=== PATIENT | male | born 1935 | race Caucasian/White ===

== ENCOUNTER 2017-07-13 14:13 | Emergency (ER) | END 2017-07-13 17:14 | disposition home or self-care (01) ==

== ENCOUNTER 2017-09-15 12:59 | Emergency (ER) | END 2017-09-15 14:10 | disposition home or self-care (01) ==

== ENCOUNTER 2018-06-29 13:15 | Inpatient (IN) | payer MEDICARE, OTHER ==
[~2018-06-29] VITALS: Ht 175.3 cm; Wt 90.5 kg
[~2018-06-29 13:15] MED LIST: ACET-2158 PO; ACET500C5 PO; ATOR40TA68 PO; BENA40TA56 PO; DOCU-144 PO; DOXA8TAB65 PO; IBUP-1542 PO; LIDO700A29 TP; MTF1000T PO; ONDA4TAB35 PO; SENN-120 PO; SITA100T11 PO; SPIR25TA PO
[2018-06-29] MEDS ORDERED: ALBUTEROL 0.083% (NEB) 2.5 MG/3 ML AMP INH STA (17:40)
--- NOTE | 2018-06-29 17:53 | ERD ---
ER Documentation Chief Complaint Chief Complaint generalized weakness x 2 weeks HPI 83-year-old male history of diabetes, hypertension, hyperlipidemia, cardiomyopathy with ejection fraction of 45% on 09/13/2015 and right inguinal her carlee ambulatory to the ED complaining of a approximate 1 week history of generalized weakness, shortness of breath, exertional dyspnea, PND, nonproductive cough and subjective fevers. No other relieving or exacerbating factors. Denies chest pain, palpitations, abdominal pain, nausea or vomiting. No leg pain or swelling. Denies dysuria, polyuria or hematuria. No anorexia, night sweats or recent weight loss. ROS All systems reviewed and are negative except as per history of present illness. Medications Home Meds Active Scripts Lidocaine (Lidoderm) 1 Each Adh..patch, 1 EACH TP DAILY for 7 Days Prov:ERIK CAPUTO PA-C 09/15/17 Ibuprofen* (Motrin*) 600 Mg Tab, 600 MG PO Q6H PRN for PAIN AND OR ELEVATED TEMP, #30 TAB Prov:ERIK CAPUTO PA-C 09/15/17 Docusate Sodium* (Colace*) 100 Mg Capsule, 100 MG PO BID, #30 CAP Prov:SANJUANA CARTAGENA MD 07/13/17 Acetaminophen* (Tylophen*) 500 Mg Capsule, 1 CAP PO Q6H PRN for PAIN AND OR ELEVATED TEMP, #20 CAP Prov:SANJUANA CARTAGENA MD 07/13/17 Sennosides* (Senna Lax*) 8.6 Mg Tablet, 1 TAB PO BID PRN for CONSTIPATION, #14 TAB Prov:KALYANI MIX DO 04/04/16 Spironolactone* (Aldactone*) 25 Mg Tab, 25 MG PO DAILY for 30 Days, TAB Prov:SRAVANTHI GUADALUPE 09/20/15 Ondansetron Hcl* (Zofran* ODT) 4 mg -ODT Tab.disper, 4 MG PO Q6 PRN for NAUSEA AND/OR VOMITING, #10 TAB Prov:GREGG ZAMORA NP 09/07/15 Reported Medications Doxazosin Mesylate* (Doxazosin Mesylate*) 8 Mg Tablet, 8 MG PO HS, TAB 09/10/15 Sitagliptin* (Januvia*) 100 Mg Tablet, 100 MG PO DAILY, #30 TAB 09/10/15 Metformin* (Glucophage*) 1,000 Mg Tablet, 1000 MG PO BID, #60 TAB 09/10/15 Atorvastatin* (Atorvastatin*) 40 Mg Tablet, 40 MG PO QHS, #30 TAB 09/10/15 Benazepril Hcl* (Benazepril Hcl*) 40 Mg Tablet, 40 MG PO DAILY, TAB 06/20/14 Discontinued Scripts Acetaminophen (TYLENOL 325 MG TAB) 325 Mg Tab, 650 MG PO Q6H PRN for PAIN LEVEL 1-3 OR FEVER, #1 TAB Prov:ANGEL DEUTSCH MD 06/24/14 Allergies Allergies: Coded Allergies: No Known Drug Allergies (Verified Allergy, Mild, 06/29/18) PMhx/Soc Reviewed in chart. As per HPI. History of Surgery: No Anesthesia Reaction: No Hx Neurological Disorder: No Hx Respiratory Disorders: No Hx Cardiac Disorders: No Hx Psychiatric Problems: No Hx Miscellaneous Medical Probl: Yes (HTN, HYPERLIPIDEMIA) Hx Alcohol Use: Yes (SOCIALLY) Hx Substance Use: No Hx Tobacco Use: Yes Smoking Status: Current every day smoker FmHx No sudden cardiac or cancer Physical Exam Vitals Vital Signs Date Temp Pulse Resp B/P (MAP) Pulse Ox O2 O2 Flow FiO2 Time Delivery Rate 06/29/18 58 20 96 21 17:56 06/29/18 98.3 61 16 117/73 98 Room Air 17:43 (88) 06/29/18 99.6 86 18 113/60 95 13:21 (77) Physical Exam Const: Alert, moderate respiratory distress Head: Atraumatic Eyes: Normal Conjunctiva ENT: Normal External Ears, Nose and Mouth. Neck: Full range of motion. JVD. No meningismus. Resp: Breath sounds diminished bilaterally with mild expiratory wheezing and rales/rhonchi chcf up both lung thorpe. Cardio: Regular rate and rhythm, no murmurs Abd: Soft, non tender, non distended. No rebound or guarding. Normal bowel sounds Skin: No petechiae or rashes Back: No midline or flank tenderness Ext: No cyanosis. 1+ pretibial pitting edema Neur: Awake and alert. No focal deficit observed. Psych: Normal Mood and Affect Result Diagram: 07/01/18 0552 07/01/18 0552 Results 24 hrs Laboratory Tests Test 06/29/18 17:54 06/29/18 18:01 White Blood Count 7.3 10^3/ul Red Blood Count 3.84 10^6/ul Hemoglobin 11.3 g/dl Hematocrit 33.8 % Mean Corpuscular Volume 88.0 fl Mean Corpuscular Hemoglobin 29.4 pg Mean Corpuscular Hemoglobin Concent 33.4 g/dl Red Cell Distribution Width 12.8 % Platelet Count 175 10^3/UL Mean Platelet Volume 10.9 fl Immature Granulocytes % 0.400 % Neutrophils % 68.1 % Lymphocytes % 16.2 % Monocytes % 13.5 % Eosinophils % 1.1 % Basophils % 0.7 % Nucleated Red Blood Cells % 0.0 /100WBC Immature Granulocytes # 0.030 10^3/ul Neutrophils # 5.0 10^3/ul Lymphocytes # 1.2 10^3/ul Monocytes # 1.0 10^3/ul Eosinophils # 0.1 10^3/ul Basophils # 0.1 10^3/ul Nucleated Red Blood Cells # 0.0 10^3/ul Prothrombin Time 19.8 Sec Prothrombin Time Ratio 1.5 INR International Normalized Ratio 1.67 Activated Partial Thromboplast Time 47.9 Sec Sodium Level 135 mmol/L Potassium Level 4.5 mmol/L Chloride Level 95 mmol/L Carbon Dioxide Level 29 mmol/L Anion Gap 11 Blood Urea Nitrogen 31 mg/dl Creatinine 0.94 mg/dl Est Glomerular Filtrat Rate mL/min mL/min Glucose Level 338 mg/dl Calcium Level 9.1 mg/dl Total Bilirubin 0.4 mg/dl Direct Bilirubin 0.00 mg/dl Indirect Bilirubin 0.4 mg/dl Aspartate Amino Transf (AST/SGOT) 36 IU/L Alanine Aminotransferase (ALT/SGPT) 31 IU/L Alkaline Phosphatase 137 IU/L Troponin I 2.960 ng/ml B-Type Natriuretic Peptide 8390 PG/ML Total Protein 6.8 g/dl Albumin 3.8 g/dl Globulin 3.00 g/dl Albumin/Globulin Ratio 1.26 Bedside Glucose 310 mg/dL Current Medications Medications Dose Sig/[place] Start Time Status Last (Trade) Ordered Route PRN Stop Time Admin Dose Reason Admin Albuterol 5 mg ONCE STAT 06/29/18 DC 06/29/18 (Proventil INH 17:40 17:54 0.083% (Neb)) 06/29/18 17:45 Furosemide 20 mg ONCE ONCE 06/29/18 DC 06/29/18 (Lasix) IV 18:30 18:17 06/29/18 18:31 Aspirin 325 mg ONCE ONCE 06/29/18 DC 06/29/18 (Aspirin) PO 18:30 18:17 06/29/18 18:31 Heparin 4,000 unit ONCE STAT 06/29/18 DC Sodium IV 18:54 (Porcine) 06/29/18 18:58 (Heparin (1000 Units/ml)) Heparin 250 ml @ 0 ONCE STAT 06/29/18 DC 06/29/18 Sodium mls/hr IV 18:54 19:14 (Porcine) 06/29/18 18:58 Procedures/MDM DOCUMENTS REVIEWED: ED nurse, prior records EKG: Time: 18:33. Sinus rhythm. ND interval 220 ms consistent with first- degree AV block. Normal QRS duration. T wave inversions in lead II, III and aVF. Q waves V1 through V4. Left ventricular hypertrophy. No acute ST elevation. No ectopy. My Interpretation IMAGING: Chest AP portable: Cardiomegaly with bilateral interstitial infiltrates consis tent with congestive heart failure and pulmonary edema. No mediastinal widening. No abnormalities of the bony thorax. My interpretation [employer]-year-old male history of diabetes, hypertension, hyperlipidemia, cardiomyopathy with ejection fraction of 45% on 09/13/2015 and right inguinal hernia ambulatory to the ED complaining of a approximate 1 week history of generalized weakness, shortness of breath, exertional dyspnea, PND, nonproductive cough and subjective fevers. CBC reveals borderline anemia but no leukocytosis. Chemistry significant for hyperglycemia and elevated BUN but no acidosis or anion gap. EKG findings as above without acute ST segment elevation or dysrhythmia. Troponin significantly elevated at 2.96 consistent with non-ST elevation acute coronary syndrome. Chest x-ray consistent with congestive heart failure. Patient presents with acute on chronic congestive heart failure and non-ST elevation acute coronary syndrome. Aspirin given. Diuresis initiated with furosemide. Preload reduction with nitroglycerin deferred as blood pressure is slightly low. Heparin bolus and drip as per ACS protocol. Admit to telemetry for cardiology consultation, further evaluation and management. CALLS/CONSULTS: Time: 18:45, Dr. Herman. CALLS/CONSULTS: Time: 18:45, Dr. Lawson. PATIENT CARE TRANSITIONED: Time: 19:00, Dr. Lawson. CRITICAL CARE TIME: Due to the high probability of sudden clinically significant respiratory, hemodynamic and cardiovascular deterioration, this patient with acute on chronic congestive heart failure and non-ST elevation acute coronary syndrome required multiple, frequent reevaluations of vital signs and response to therapy. Additional critical care time was spent in extensive review of prior medical records, interpretation of relevant clinical data, consultation with cardiology as well as arranging for ongoing care and admission with Dr. Lawson. TOTAL CRITICAL CARE TIME: 35 minutes not including other separately reportable procedures. Counseled patient regarding diagnosis, diagnostic results and plan for admission. Patient was reluctant to be admitted but eventually consented. Departure Diagnosis: Primary Impression: Shortness of breath Additional Impressions: Acute congestive heart failure Heart failure type: unspecified Qualified Codes: I50.9 - Heart failure, unspecified Acute non-ST elevation myocardial infarction (NSTEMI) Condition: Serious CHANELL WALTON MD Jun 29, 2018 17:53
[2018-06-29] MEDS ORDERED: ASPIRIN 325 MG TAB PO ONE (18:30)
[2018-06-29] MEDS ORDERED: FUROSEMIDE 20 MG INJ IV ONE (18:30)
[2018-06-29] MEDS ORDERED: HEPARIN 25000 UNITS/250 ML 250 ML IV STA (18:54)
[2018-06-29] MEDS ORDERED: HEPARIN 1000 UNITS/ML 10 ML INJ IV STA (18:54)
[2018-06-29] MEDS ORDERED: ONDANSETRON 4 MG INJ IV PRN ×2 (19:30→22:30)
[2018-06-29] MEDS ORDERED: ACETAMINOPHEN 325 MG TAB PO PRN (19:30)
[2018-06-29 20:00] VITALS: BP 119/65; PULSE 70; RESP 20
[2018-06-29 20:46] VITALS: PULSE 59
[2018-06-29 21:00] VITALS: Ht 175.3 cm; Wt 90.5 kg
[2018-06-29] MEDS ORDERED: LIDOCAINE 5% PATCH TD PRN (22:00)
[2018-06-29] MEDS ORDERED: ACETAMINOPHEN 500 MG TAB PO PRN (22:00)
[2018-06-29] MEDS ORDERED: IBUPROFEN 600 MG TAB PO PRN (22:00)
[2018-06-29] MEDS ORDERED: HEPARIN 1000 UNITS/ML 10 ML INJ IV PRN (22:30)
[2018-06-29] MEDS ORDERED: NITROGLYCERIN (SL) 0.4 MG TAB SL PRN (22:30)
[2018-06-29] MEDS ORDERED: DEXTROSE 50% 50 ML SYRINGE IV PRN ×2 (23:00)
[2018-06-29] MEDS ORDERED: GLUCOSE GEL 15 GRAM TUBE PO PRN ×2 (23:00)
[2018-06-29] MEDS ORDERED: GLUCOSE GEL 15 GRAM TUBE BUCCAL PRN (23:00)
[2018-06-29] MEDS ORDERED: GLUCAGON 1 MG INJ IM PRN (23:00)
[2018-06-29] MEDS: CEFTRIAXONE 1 GM/50 ML (PMX) 50 ML IVPB SCH (23:52)
[2018-06-30] VITALS (9 sets, daily range): BP systolic 102–148; BP diastolic 58–80; PULSE 58–91; RESP 19–21
[2018-06-30] MEDS: INSULIN GLARGINE [LANTus] (100 UNITS/ML) SYG SC SCH ×2 (00:01→20:56)
[2018-06-30] MEDS: INSULIN ASPART [NOVOLOG] 3 ML PEN SC SCH ×5 (00:01→20:54)
[2018-06-30] MEDS: ALBUTEROL/IPRATROPIUM (NEB) 3 ML AMP HHN SCH ×4 (01:02→20:58)
[2018-06-30] MEDS: HEPARIN 25000 UNITS/250 ML 250 ML IV SCH ×3 (01:27→17:10)
[2018-06-30] MEDS: ACCU-CHEK XX SCH (02:36)
[2018-06-30] MEDS: PANTOPRAZOLE (EC) 40 MG TAB PO SCH (05:53)
[2018-06-30] MEDS ORDERED: FUROSEMIDE 20 MG INJ IV SCH (06:00)
[2018-06-30] MEDS ORDERED: ACCU-CHEK XX SCH ×2 (07:00)
[2018-06-30] MEDS ORDERED: metFORMIN 500 MG TAB PO SCH (08:00)
[2018-06-30] MEDS: BENAZEPRIL 40 MG TAB PO SCH (08:33)
[2018-06-30] MEDS: SPIRONOLACTONE 25 MG TAB PO SCH (08:33)
[2018-06-30] MEDS: METHYLPREDNISOLONE 40 MG INJ IV SCH ×2 (08:33→20:56)
[2018-06-30] MEDS: DOCUSATE SODIUM 100 MG CAP PO SCH ×2 (08:34→20:57)
[2018-06-30] MEDS: LINAGLIPTIN 5 MG TABLET PO SCH (08:34)
[2018-06-30] MEDS: NPH, HUMAN INSULIN ISOPHANE 3ML VIAL SC SCH ×2 (08:46→20:55)
[2018-06-30] MEDS ORDERED: ASPIRIN 325 MG TAB PO SCH (09:00)
[2018-06-30] MEDS ORDERED: METOPROLOL 25 MG TAB PO SCH (09:00)
--- NOTE | 2018-06-30 13:07 | HP ---
Date/Time of Note Date/Time of Note DATE: 06/30/18 TIME: 12:58 Assessment/Plan VTE Prophylaxis Risk score (from Ns)>0 risk: 3 SCD applied (from Ns): Yes Lines/Catheters IV Catheter Type (from Nrs): Saline Lock Assessment/Plan Assessment/Plan NSTEMI (non-ST elevated myocardial infarction) - admit to tele -per cardio - Shortness of breath Acute congestive heart failure Result Diagram: 06/30/18 0734 06/30/18 0734 Results 24hrs Laboratory Tests Test 06/29/18 17:54 06/29/18 18:01 06/29/18 20:57 06/29/18 23:54 White Blood Count 7.3 Red Blood Count 3.84 L Hemoglobin 11.3 L Hematocrit 33.8 L Mean Corpuscular 88.0 Volume Mean Corpuscular 29.4 Hemoglobin Mean Corpuscular 33.4 Hemoglobin Concent Red Cell 12.8 Distribution Width Platelet Count 175 Mean Platelet Volume 10.9 H Immature 0.400 Granulocytes % Neutrophils % 68.1 Lymphocytes % 16.2 Monocytes % 13.5 H Eosinophils % 1.1 Basophils % 0.7 Nucleated Red Blood 0.0 Cells % Immature 0.030 Granulocytes # Neutrophils # 5.0 Lymphocytes # 1.2 Monocytes # 1.0 H Eosinophils # 0.1 Basophils # 0.1 Nucleated Red Blood 0.0 Cells # Prothrombin Time 19.8 H Prothrombin Time 1.5 Ratio INR International 1.67 Normalized Ratio Activated 47.9 H Partial Thromboplast Time Sodium Level 135 Potassium Level 4.5 Chloride Level 95 L Carbon Dioxide Level 29 Anion Gap 11 Blood Urea Nitrogen 31 H Creatinine 0.94 Est Glomerular Filtrat Rate mL/min Glucose Level 338 H Calcium Level 9.1 Total Bilirubin 0.4 Direct Bilirubin 0.00 Indirect Bilirubin 0.4 Aspartate Amino 36 Transf (AST/SGOT) Alanine 31 Aminotransferase (AL T/SGPT) Alkaline Phosphatase 137 H Troponin I 2.960 *H B-Type Natriuretic 8390 H Peptide Total Protein 6.8 Albumin 3.8 Globulin 3.00 Albumin/Globulin 1.26 Ratio Bedside Glucose 310 H 302 H 288 H Test 06/30/18 00:51 06/30/18 00:52 06/30/18 02:35 06/30/18 07:30 Activated 50.0 H Partial Thromboplast Time Troponin I 3.740 *H Bedside Glucose 243 H 223 H Test 06/30/18 07:34 06/30/18 12:10 White Blood Count 6.7 Red Blood Count 3.93 L Hemoglobin 11.5 L Hematocrit 34.5 L Mean Corpuscular 87.8 Volume Mean Corpuscular 29.3 Hemoglobin Mean Corpuscular 33.3 Hemoglobin Concent Red Cell 12.9 Distribution Width Platelet Count 179 Mean Platelet Volume 11.0 H Immature 0.300 Granulocytes % Neutrophils % 73.2 Lymphocytes % 14.4 L Monocytes % 9.0 Eosinophils % 2.3 Basophils % 0.8 Nucleated Red Blood 0.0 Cells % Immature 0.020 Granulocytes # Neutrophils # 4.9 Lymphocytes # 1.0 Monocytes # 0.6 Eosinophils # 0.2 Basophils # 0.1 Nucleated Red Blood 0.0 Cells # Activated 70.8 *H Partial Thromboplast Time Sodium Level 135 Potassium Level 3.8 Chloride Level 96 L Carbon Dioxide Level 33 H Anion Gap 6 Blood Urea Nitrogen 25 H Creatinine 0.80 Est Glomerular Filtrat Rate mL/min Glucose Level 216 # Hemoglobin A1c 10.8 H Calcium Level 8.8 Total Bilirubin 0.6 Direct Bilirubin 0.00 Indirect Bilirubin 0.6 Aspartate Amino 39 Transf (AST/SGOT) Alanine 34 Aminotransferase (AL T/SGPT) Alkaline Phosphatase 99 Creatinine Kinase MB 6.72 H (Mass) Troponin I 2.390 *H Total Protein 6.1 Albumin 3.4 Globulin 2.70 Albumin/Globulin 1.25 Ratio Triglycerides Level 70 Cholesterol Level 66 L LDL Cholesterol, 28 Calculated HDL Cholesterol 24 L Cholesterol/HDL 2.7 Ratio Bedside Glucose 251 H HPI/ROS Admit Date/Time Admit Date/Time Jun 29, 2018 at 19:13 Hx of Present Illness HPI 83-year-old male history of diabetes, hypertension, hyperlipidemia and right inguinal hernia ambulatory to the ED complaining of a approximate 1 week history of generalized weakness, shortness of breath, exertional dyspnea, PND, n onproductive cough and subjective fevers. Denies chest pain, palpitations, abdominal pain, nausea or vomiting. No leg pain or swelling. No relieving or exacerbating factors. ROS All systems reviewed and are negative except as per history of present illness. Medications Home Meds Active Scripts Lidocaine (Lidoderm) 1 Each Adh..patch, 1 EACH TP DAILY for 7 Days Prov:ERIK CAPUTO PA-C 09/15/17 Ibuprofen* (Motrin*) 600 Mg Tab, 600 MG PO Q6H PRN for PAIN AND OR ELEVATED TEMP, #30 TAB Prov:ERIK CAPUTO PA-C 09/15/17 Docusate Sodium* (Colace*) 100 Mg Capsule, 100 MG PO BID, #30 CAP Prov:SANJUANA CARTAGENA MD 07/13/17 Acetaminophen* (Tylophen*) 500 Mg Capsule, 1 CAP PO Q6H PRN for PAIN AND OR ELEVATED TEMP, #20 CAP Prov:SANJUANA CARTAGENA MD 07/13/17 Sennosides* (Senna Lax*) 8.6 Mg Tablet, 1 TAB PO BID PRN for CONSTIPATION, #14 TAB Prov:KALYANI MIX DO 04/04/16 Spironolactone* (Aldactone*) 25 Mg Tab, 25 MG PO DAILY for 30 Days, TAB Prov:SRAVANTHI GUADALUPE 09/20/15 Ondansetron Hcl* (Zofran* ODT) 4 mg -ODT Tab.disper, 4 MG PO Q6 PRN for NAUSEA AND/OR VOMITING, #10 TAB Prov:GREGG ZAMORA NP 09/07/15 Reported Medications Doxazosin Mesylate* (Doxazosin Mesylate*) 8 Mg Tablet, 8 MG PO HS, TAB 09/10/15 Sitagliptin* (Januvia*) 100 Mg Tablet, 100 MG PO DAILY, #30 TAB 09/10/15 Metformin* (Glucophage*) 1,000 Mg Tablet, 1000 MG PO BID, #60 TAB 09/10/15 Atorvastatin* (Atorvastatin*) 40 Mg Tablet, 40 MG PO QHS, #30 TAB 09/10/15 Benazepril Hcl* (Benazepril Hcl*) 40 Mg Tablet, 40 MG PO DAILY, TAB 06/20/14 Discontinued Scripts Acetaminophen (TYLENOL 325 MG TAB) 325 Mg Tab, 650 MG PO Q6H PRN for PAIN LEVEL 1-3 OR FEVER, #1 TAB Prov:ANGEL DEUTSCH MD 06/24/14 Allergies Allergies: Coded Allergies: No Known Drug Allergies (Verified Allergy, Mild, 06/29/18) PMhx/Soc Reviewed in chart. As per HPI. History of Surgery: No Anesthesia Reaction: No Hx Neurological Disorder: No Hx Respiratory Disorders: No Hx Cardiac Disorders: No Hx Psychiatric Problems: No Hx Miscellaneous Medical Probl: Yes (HTN, HYPERLIPIDEMIA) Hx Alcohol Use: Yes (SOCIALLY) Hx Substance Use: No Hx Tobacco Use: Yes Smoking Status: Current every day smoker FmHx No sudden cardiac or cancer ROS Constitutional: no complaints Eyes: no complaints ENT: no complaints Respiratory: no complaints Cardiovascular: no complaints Gastrointestinal: no complaints Genitourinary: no complaints Musculoskeletal: no complaints Skin: no complaints PMH/Family/Social Past Medical History Medications Current Medications Ondansetron HCl (Zofran Inj) 4 mg ER BRIDGE PRN IV NAUSEA/VOMITING; Start 06/29/18 at 19:30; Stop 06/30/18 at 19:29 Acetaminophen (Tylenol Tab) 650 mg ER BRIDGE PRN PO .MILD PAIN 1-3 OR TEMP; Start 06/29/18 at 19:30; Stop 06/30/18 at 19:29 Acetaminophen (Tylenol Tab) 650 mg Q6H PRN PO MILD PAIN(1-3)OR ELEVATED TEMP; Start 06/29/18 at 22:00 Atorvastatin Calcium (Lipitor) 40 mg QHS PO ; Start 06/30/18 at 21:00 Benazepril HCl (Lotensin) 10 mg DAILY PO Last administered on 06/30/18at 08:33; Admin Dose 10 MG; Start 06/30/18 at 09:00 Docusate Sodium (Colace) 100 mg BID PO Last administered on 06/30/18at 08:34; Admin Dose 100 MG; Start 06/30/18 at 09:00 Doxazosin Mesylate (Cardura) 8 mg HS PO ; Start 06/30/18 at 21:00 Ibuprofen (Motrin) 600 mg Q6H PRN PO MILD PAIN(1-3)OR ELEVATED TEMP; Start 06/29/18 at 22:00 Lidocaine (Lidoderm) 5 patch DAILY PRN TD PAIN; Start 06/29/18 at 22:00 Metformin HCl (Glucophage) 1,000 mg BID WITH MEALS PO Last administered on 06/30/18at 08:34; Admin Dose 1,000 MG; Start 06/30/18 at 08:00 Spironolactone (Aldactone) 25 mg DAILY PO Last administered on 06/30/18at 08:33; Admin Dose 25 MG; Start 06/30/18 at 09:00 Linagliptin (Tradjenta) 5 mg DAILY PO Last administered on 06/30/18 08:34; Admin Dose 5 MG; Start 06/30/18 at 09:00 Ondansetron HCl (Zofran Inj) 4 mg Q6H PRN IV NAUSEA AND/OR VOMITING; Start 06/29/18 at 22:30 Metoprolol Tartrate (Lopressor) 25 mg BID PO Last administered on 06/30/18 08:34; Admin Dose 25 MG; Start 06/30/18 at 09:00 Ceftriaxone Sodium 50 ml @ 100 mls/hr Q24H IVPB Last administered on 06/29/18 23:52; Admin Dose 100 MLS/HR; Start 06/29/18 at 22:30 Aspirin (Aspirin) 325 mg DAILY PO Last administered on 06/30/18 08:33; Admin Dose 325 MG; Start 06/30/18 at 09:00 Furosemide (Lasix) 20 mg BID DIURETICS IV Last administered on 06/30/18 05:53; Admin Dose 20 MG; Start 06/30/18 at 06:00 Diagnostic Test (Pha) (Accu-Chek) 1 ea 02 XX Last administered on 06/30/18 02:36; Admin Dose 1 EA; Start 06/30/18 at 02:00 Insulin Glargine (Lantus) 10 units DAILY@2000 SC Last administered on 06/30/18 00:01; Admin Dose 10 UNITS; Start 06/29/18 at 22:30 Insulin Aspart (Novolog Insulin Pen) NOVOLOG *MILD* ALGORITHM WITH MEALS BEDTIME SC Last administered on 06/30/18 12:23; Admin Dose 3 UNIT; Start 06/30/18 at 08:00 Methylprednisolone Sodium Succinate (Solu-Medrol) 40 mg BID IV Last administered on 06/30/18 08:33; Admin Dose 40 MG; Start 06/30/18 at 09:00 Insulin Human NPH (Humulin N) 10 unit BID SC Last administered on 06/30/18 08:46; Admin Dose 10 UNIT; Start 06/30/18 at 09:00 Pantoprazole (Protonix Tab) 40 mg DAILY@06 PO Last administered on 06/30/18 05:53; Admin Dose 40 MG; Start 06/30/18 at 06:00 Nitroglycerin (Nitroglycerin (Sl Tab) 0.4 Mg) 1 tab Q5M PRN SL ANGINA; Start 06/29/18 at 22:30 Heparin Sodium (Porcine) (Heparin (1000 Units/ml)) 4,000 unit PER PROTOCOL PRN IV aPTT<47; Start 06/29/18 at 22:30 Albuterol/ Ipratropium (Duoneb) 3 ml Q6H RESP THERAPY HHN Last administered on 06/30/18at 08:47; Admin Dose 3 ML; Start 06/30/18 at 02:00 Miscellaneous Information 1 ea NOTE XX ; Start 06/29/18 at 23:00 Glucose (Glutose) 15 gm Q15M PRN PO DECREASED GLUCOSE; Start 06/29/18 at 23:00 Glucose (Glutose) 22.5 gm Q15M PRN PO DECREASED GLUCOSE; Start 06/29/18 at 23:00 Dextrose (D50w Syringe) 25 ml Q15M PRN IV DECREASED GLUCOSE; Start 06/29/18 at 23:00 Dextrose (D50w Syringe) 50 ml Q15M PRN IV DECREASED GLUCOSE; Start 06/29/18 at 23:00 Glucagon (Glucagen) 1 mg Q15M PRN IM DECREASED GLUCOSE; Start 06/29/18 at 23:00 Glucose (Glutose) 15 gm Q15M PRN BUCCAL DECREASED GLUCOSE; Start 06/29/18 at 23:00 Heparin Sodium (Porcine) 250 ml @ 10 mls/hr PER PROTOCOL IV Last administered on 06/30/18at 09:26; Admin Dose 11 MLS/HR; Start 06/29/18 at 23:00 Guaifenesin/ Dextromethorphan (Robitussin Dm Liquid Cup) 10 ml Q4H PRN PO COUGH; Start 06/30/18 at 11:00 Coded Allergies: No Known Drug Allergies (Verified Allergy, Mild, 06/29/18) Family History Significant Family History: hypertension Social History Smoking Status: Former smoker Exam/Review of Systems Vital Signs Vitals Vital Signs Date Temp Pulse Resp B/P (MAP) Pulse Ox O2 O2 Flow FiO2 Time Delivery Rate 06/30/18 72 12:11 06/30/18 98.1 19 125/78 97 12:03 (94) 06/30/18 Nasal 2.0 08:50 Cannula 06/29/18 21 17:56 Intake and Output 06/29/18 06/29/18 06/30/18 1515:00 23:00 07:00 IntakeIntake Total 250 ml OutputOutput Total 350 ml BalanceBalance -100 ml Exam Constitutional: alert, oriented, well developed Psych: nl mood/affect Head: atraumatic Eyes: EOMI ENMT: nl external ears & nose Neck: non-tender Respiratory: clear to auscultation Cardiovascular: nl pulses Gastrointestinal: soft, non-tender Musculoskeletal: nl extremities to inspection MOSHE YOUNG Jun 30, 2018 13:07
--- NOTE | 2018-06-30 13:59 | CONS ---
Assessment/Plan Assessment/Plan Hospital Course (Demo Recall) 1. Non-ST elevation myocardial infarction 2. Congestive heart failure: Acute due to systolic heart failure 3. Severe ischemic cardiomyopathy 4. Diabetes 5. Hypertension 6. Dyslipidemia Recommendations: Continue with a heparin drip I would increase the Lasix to 40 mg IV twice daily Aldactone will be added Digoxin will be added Metoprolol will be changed to carvedilol Continue with MYAH inhibitor as tolerated Plan for left heart catheterization coronary angiogram possible percutaneous coronary intervention once respiratory cochran he has improved . We tentatively try to schedule him for tomorrow. However if by tomorrow he continues to be in uncompensated heart failure may have to postpone that until he gets better compensated. Risks benefits alternatives of heart catheterization coronary angiogram percutaneous coronary intervention discussed with the patient in detail. Including but not limited to risk of infection vascular complication bleeding complication MS stroke arrhythmia renal failure etc. discussed with him patient wants to think about it more and if he agrees to will consent the patient and schedule him Thank you for this referral. We will continue to follow along with you JA CHACON MD [facility] Consultation Date/Type/Reason Admit Date/Time Jun 29, 2018 at 19:13 Date of Consultation: Jun 30, 2018 Type of Consult Cardiology Reason for Consultation MS Requesting Provider: MOSHE YOUNG Date/Time of Note DATE: 06/30/18 TIME: 13:51 Hx of Present Illness Interventional cardiology consultation note Chief complaint: SOB Reason for consult: Myocardial infarction History of present illness: Thank you for this referral. History was obtained from the patient discussion with the staff and physicians review of the old chart. This is a 83-year-old gentleman with diabetes hypertension dyslipidemia who came to emergency with complaint of 1 week of shortness of breath. Patient also with cough orthopnea. Patient is a poor historian. Denies any active chest pain or pressure to me. What appears that he has been getting chest discomfort up in activity lately. His troponin was positive.BUT HAS remained stable now Allergies: NKDA Medications were reviewed as per medical reconciliation sheet Family history: Denies any history of early coronary artery disease Social history: No active smoking Patient lives with his roommate. His family lives in [place] Past medical history: Hypertension diabetes dyslipidemia chronic back pain Review of system: Patient denies all others except for above-mentioned Past Medical History Home Meds Active Scripts Lidocaine (Lidoderm) 1 Each Adh..patch, 1 EACH TP DAILY for 7 Days Prov:ERIK CAPUTO PA-C 09/15/17 Ibuprofen* (Motrin*) 600 Mg Tab, 600 MG PO Q6H PRN for PAIN AND OR ELEVATED TEMP, #30 TAB Prov:ERIK CAPUTO PA-C 09/15/17 Docusate Sodium* (Colace*) 100 Mg Capsule, 100 MG PO BID, #30 CAP Prov:SANJUANA CARTAGENA MD 07/13/17 Acetaminophen* (Tylophen*) 500 Mg Capsule, 1 CAP PO Q6H PRN for PAIN AND OR ELEVATED TEMP, #20 CAP Prov:SANJUANA CARTAGENA MD 07/13/17 Sennosides* (Senna Lax*) 8.6 Mg Tablet, 1 TAB PO BID PRN for CONSTIPATION, #14 TAB Prov:KALYANI MIX DO 04/04/16 Spironolactone* (Aldactone*) 25 Mg Tab, 25 MG PO DAILY for 30 Days, TAB Prov:SRAVANTHI GUADALUPE 09/20/15 Ondansetron Hcl* (Zofran* ODT) 4 mg -ODT Tab.disper, 4 MG PO Q6 PRN for NAUSEA AND/OR VOMITING, #10 TAB Prov:GREGG ZAMORA NP 09/07/15 Reported Medications Doxazosin Mesylate* (Doxazosin Mesylate*) 8 Mg Tablet, 8 MG PO HS, TAB 09/10/15 Sitagliptin* (Januvia*) 100 Mg Tablet, 100 MG PO DAILY, #30 TAB 09/10/15 Metformin* (Glucophage*) 1,000 Mg Tablet, 1000 MG PO BID, #60 TAB 09/10/15 Atorvastatin* (Atorvastatin*) 40 Mg Tablet, 40 MG PO QHS, #30 TAB 09/10/15 Benazepril Hcl* (Benazepril Hcl*) 40 Mg Tablet, 40 MG PO DAILY, TAB 06/20/14 Discontinued Scripts Acetaminophen (TYLENOL 325 MG TAB) 325 Mg Tab, 650 MG PO Q6H PRN for PAIN LEVEL 1-3 OR FEVER, #1 TAB Prov:ANGEL DEUTSCH MD 06/24/14 Medications Current Medications Ondansetron HCl (Zofran Inj) 4 mg ER BRIDGE PRN IV NAUSEA/VOMITING; Start 06/29/18 at 19:30; Stop 06/30/18 at 19:29 Acetaminophen (Tylenol Tab) 650 mg ER BRIDGE PRN PO .MILD PAIN 1-3 OR TEMP; Start 06/29/18 at 19:30; Stop 06/30/18 at 19:29 Acetaminophen (Tylenol Tab) 650 mg Q6H PRN PO MILD PAIN(1-3)OR ELEVATED TEMP; Start 06/29/18 at 22:00 Atorvastatin Calcium (Lipitor) 40 mg QHS PO ; Start 06/30/18 at 21:00 Benazepril HCl (Lotensin) 10 mg DAILY PO Last administered on 06/30/18at 08:33; Admin Dose 10 MG; Start 06/30/18 at 09:00 Docusate Sodium (Colace) 100 mg BID PO Last administered on 06/30/18at 08:34; Admin Dose 100 MG; Start 06/30/18 at 09:00 Doxazosin Mesylate (Cardura) 8 mg HS PO ; Start 06/30/18 at 21:00 Ibuprofen (Motrin) 600 mg Q6H PRN PO MILD PAIN(1-3)OR ELEVATED TEMP; Start 06/29/18 at 22:00 Lidocaine (Lidoderm) 5 patch DAILY PRN TD PAIN; Start 06/29/18 at 22:00 Metformin HCl (Glucophage) 1,000 mg BID WITH MEALS PO Last administered on 06/30/18at 08:34; Admin Dose 1,000 MG; Start 06/30/18 at 08:00; Status Hold Spironolactone (Aldactone) 25 mg DAILY PO Last administered on 06/30/18at 08:33; Admin Dose 25 MG; Start 06/30/18 at 09:00 Linagliptin (Tradjenta) 5 mg DAILY PO Last administered on 06/30/18at 08:34; Admin Dose 5 MG; Start 06/30/18 at 09:00 Ondansetron HCl (Zofran Inj) 4 mg Q6H PRN IV NAUSEA AND/OR VOMITING; Start 06/29/18 at 22:30 Metoprolol Tartrate (Lopressor) 25 mg BID PO Last administered on 06/30/18at 08:34; Admin Dose 25 MG; Start 06/30/18 at 09:00 Ceftriaxone Sodium 50 ml @ 100 mls/hr Q24H IVPB Last administered on 06/29/18at 23:52; Admin Dose 100 MLS/HR; Start 06/29/18 at 22:30 Diagnostic Test (Pha) (Accu-Chek) 1 ea 02 XX Last administered on 06/30/18at 02:36; Admin Dose 1 EA; Start 06/30/18 at 02:00 Insulin Glargine (Lantus) 10 units DAILY@2000 SC Last administered on 06/30/18at 00:01; Admin Dose 10 UNITS; Start 06/29/18 at 22:30 Insulin Aspart (Novolog Insulin Pen) NOVOLOG *MILD* ALGORITHM WITH MEALS BEDTIME SC Last administered on 06/30/18at 12:23; Admin Dose 3 UNIT; Start 06/30/18 at 08:00 Methylprednisolone Sodium Succinate (Solu-Medrol) 40 mg BID IV Last a dministered on 06/30/18at 08:33; Admin Dose 40 MG; Start 06/30/18 at 09:00 Insulin Human NPH (Humulin N) 10 unit BID SC Last administered on 06/30/18 08:46; Admin Dose 10 UNIT; Start 06/30/18 at 09:00 Pantoprazole (Protonix Tab) 40 mg DAILY@06 PO Last administered on 06/30/18at 05:53; Admin Dose 40 MG; Start 06/30/18 at 06:00 Nitroglycerin (Nitroglycerin (Sl Tab) 0.4 Mg) 1 tab Q5M PRN SL ANGINA; Start 06/29/18 at 22:30 Heparin Sodium (Porcine) (Heparin (1000 Units/ml)) 4,000 unit PER PROTOCOL PRN IV aPTT<47; Start 06/29/18 at 22:30 Albuterol/ Ipratropium (Duoneb) 3 ml Q6H RESP THERAPY HHN Last administered on 06/30/18at 08:47; Admin Dose 3 ML; Start 06/30/18 at 02:00 Miscellaneous Information 1 ea NOTE XX ; Start 06/29/18 at 23:00 Glucose (Glutose) 15 gm Q15M PRN PO DECREASED GLUCOSE; Start 06/29/18 at 23:00 Glucose (Glutose) 22.5 gm Q15M PRN PO DECREASED GLUCOSE; Start 06/29/18 at 23:00 Dextrose (D50w Syringe) 25 ml Q15M PRN IV DECREASED GLUCOSE; Start 06/29/18 at 23:00 Dextrose (D50w Syringe) 50 ml Q15M PRN IV DECREASED GLUCOSE; Start 06/29/18 at 23:00 Glucagon (Glucagen) 1 mg Q15M PRN IM DECREASED GLUCOSE; Start 06/29/18 at 23:00 Glucose (Glutose) 15 gm Q15M PRN BUCCAL DECREASED GLUCOSE; Start 06/29/18 at 23:00 Heparin Sodium (Porcine) 250 ml @ 10 mls/hr PER PROTOCOL IV Last administered on 06/30/18at 09:26; Admin Dose 11 MLS/HR; Start 06/29/18 at 23:00 Guaifenesin/ Dextromethorphan (Robitussin Dm Liquid Cup) 10 ml Q4H PRN PO COUGH; Start 06/30/18 at 11:00 Aspirin (Aspirin) 81 mg DAILY PO ; Start 07/01/18 at 09:00; Status UNV Furosemide (Lasix) 40 mg BID DIURETICS IV ; Start 06/30/18 at 18:00; Status UNV Allergies: Coded Allergies: No Known Drug Allergies (Verified Allergy, Mild, 06/29/18) Social History Smoking Status: Former smoker Exam/Review of Systems Vital Signs Vitals Vital Signs Date Temp Pulse Resp B/P (MAP) Pulse Ox O2 O2 Flow FiO2 Time Delivery Rate 06/30/18 72 12:11 06/30/18 98.1 19 125/78 97 12:03 (94) 06/30/18 Nasal 2.0 08:50 Cannula 06/29/18 21 17:56 Intake and Output 06/29/18 06/29/18 06/30/18 1515:00 23:00 07:00 IntakeIntake Total 250 ml OutputOutput Total 350 ml BalanceBalance -100 ml Exam Exam General: Obese gentleman in respiratory distress HEENT: NC/AT. pupils are equal. round. NECK: NO JVD. no stridor. CV: RRR. systolic murmur; no gallop or rubs. PULM: no wheezing + rhonchi. GI: SOFT, NT, ND, no rebound or guarding Extremity: 1+ B/L LE edema. no clubbing. neuro: awake and alert, OX3. Psych: calm and pleasant rectal: deferred : normal EKG was personally reviewed showed normal sinus rhythm anteroseptal infarct age undetermined. Marked ST-T wave abnormality. LVH Chest x-ray was personally reviewed which is consistent with congestive heart failure Labs Result Diagram: 06/30/18 0734 06/30/18 0734 Results 24hrs Laboratory Tests Test 06/29/18 17:54 06/29/18 18:01 06/29/18 20:57 06/29/18 23:54 White Blood Count 7.3 Red Blood Count 3.84 L Hemoglobin 11.3 L Hematocrit 33.8 L Mean Corpuscular 88.0 Volume Mean Corpuscular 29.4 Hemoglobin Mean Corpuscular 33.4 Hemoglobin Concent Red Cell 12.8 Distribution Width Platelet Count 175 Mean Platelet Volume 10.9 H Immature 0.400 Granulocytes % Neutrophils % 68.1 Lymphocytes % 16.2 Monocytes % 13.5 H Eosinophils % 1.1 Basophils % 0.7 Nucleated Red Blood 0.0 Cells % Immature 0.030 Granulocytes # Neutrophils # 5.0 Lymphocytes # 1.2 Monocytes # 1.0 H Eosinophils # 0.1 Basophils # 0.1 Nucleated Red Blood 0.0 Cells # Prothrombin Time 19.8 H Prothrombin Time 1.5 Ratio INR International 1.67 Normalized Ratio Activated 47.9 H Partial Thromboplast Time Sodium Level 135 Potassium Level 4.5 Chloride Level 95 L Carbon Dioxide Level 29 Anion Gap 11 Blood Urea Nitrogen 31 H Creatinine 0.94 Est Glomerular Filtrat Rate mL/min Glucose Level 338 H Calcium Level 9.1 Total Bilirubin 0.4 Direct Bilirubin 0.00 Indirect Bilirubin 0.4 Aspartate Amino 36 Transf (AST/SGOT) Alanine 31 Aminotransferase (AL T/SGPT) Alkaline Phosphatase 137 H Troponin I 2.960 *H B-Type Natriuretic 8390 H Peptide Total Protein 6.8 Albumin 3.8 Globulin 3.00 Albumin/Globulin 1.26 Ratio Bedside Glucose 310 H 302 H 288 H Test 06/30/18 00:51 06/30/18 00:52 06/30/18 02:35 06/30/18 07:30 Activated 50.0 H Partial Thromboplast Time Troponin I 3.740 *H Bedside Glucose 243 H 223 H Test 06/30/18 07:34 06/30/18 12:10 White Blood Count 6.7 Red Blood Count 3.93 L Hemoglobin 11.5 L Hematocrit 34.5 L Mean Corpuscular 87.8 Volume Mean Corpuscular 29.3 Hemoglobin Mean Corpuscular 33.3 Hemoglobin Concent Red Cell 12.9 Distribution Width Platelet Count 179 Mean Platelet Volume 11.0 H Immature 0.300 Granulocytes % Neutrophils % 73.2 Lymphocytes % 14.4 L Monocytes % 9.0 Eosinophils % 2.3 Basophils % 0.8 Nucleated Red Blood 0.0 Cells % Immature 0.020 Granulocytes # Neutrophils # 4.9 Lymphocytes # 1.0 Monocytes # 0.6 Eosinophils # 0.2 Basophils # 0.1 Nucleated Red Blood 0.0 Cells # Activated 70.8 *H Partial Thromboplast Time Sodium Level 135 Potassium Level 3.8 Chloride Level 96 L Carbon Dioxide Level 33 H Anion Gap 6 Blood Urea Nitrogen 25 H Creatinine 0.80 Est Glomerular Filtrat Rate mL/min Glucose Level 216 # Hemoglobin A1c 10.8 H Calcium Level 8.8 Total Bilirubin 0.6 Direct Bilirubin 0.00 Indirect Bilirubin 0.6 Aspartate Amino 39 Transf (AST/SGOT) Alanine 34 Aminotransferase (AL T/SGPT) Alkaline Phosphatase 99 Creatinine Kinase MB 6.72 H (Mass) Troponin I 2.390 *H Total Protein 6.1 Albumin 3.4 Globulin 2.70 Albumin/Globulin 1.25 Ratio Triglycerides Level 70 Cholesterol Level 66 L LDL Cholesterol, 28 Calculated HDL Cholesterol 24 L Cholesterol/HDL 2.7 Ratio Bedside Glucose 251 H Medications Medications Current Medications Ondansetron HCl (Zofran Inj) 4 mg ER BRIDGE PRN IV NAUSEA/VOMITING; Start 06/29/18 at 19:30; Stop 06/30/18 at 19:29 Acetaminophen (Tylenol Tab) 650 mg ER BRIDGE PRN PO .MILD PAIN 1-3 OR TEMP; Start 06/29/18 at 19:30; Stop 06/30/18 at 19:29 Acetaminophen (Tylenol Tab) 650 mg Q6H PRN PO MILD PAIN(1-3)OR ELEVATED TEMP; Start 06/29/18 at 22:00 Atorvastatin Calcium (Lipitor) 40 mg QHS PO ; Start 06/30/18 at 21:00 Benazepril HCl (Lotensin) 10 mg DAILY PO Last administered on 06/30/18at 08:33; Admin Dose 10 MG; Start 06/30/18 at 09:00 Docusate Sodium (Colace) 100 mg BID PO Last administered on 06/30/18 08:34; Admin Dose 100 MG; Start 06/30/18 at 09:00 Doxazosin Mesylate (Cardura) 8 mg HS PO ; Start 06/30/18 at 21:00 Ibuprofen (Motrin) 600 mg Q6H PRN PO MILD PAIN(1-3)OR ELEVATED TEMP; Start 06/29/18 at 22:00 Lidocaine (Lidoderm) 5 patch DAILY PRN TD PAIN; Start 06/29/18 at 22:00 Metformin HCl (Glucophage) 1,000 mg BID WITH MEALS PO Last administered on 06/30/18 08:34; Admin Dose 1,000 MG; Start 06/30/18 at 08:00; Status Hold Spironolactone (Aldactone) 25 mg DAILY PO Last administered on 06/30/18at 08:33; Admin Dose 25 MG; Start 06/30/18 at 09:00 Linagliptin (Tradjenta) 5 mg DAILY PO Last administered on 06/30/18 08:34; A dmin Dose 5 MG; Start 06/30/18 at 09:00 Ondansetron HCl (Zofran Inj) 4 mg Q6H PRN IV NAUSEA AND/OR VOMITING; Start 06/29/18 at 22:30 Metoprolol Tartrate (Lopressor) 25 mg BID PO Last administered on 06/30/18 08:34; Admin Dose 25 MG; Start 06/30/18 at 09:00 Ceftriaxone Sodium 50 ml @ 100 mls/hr Q24H IVPB Last administered on 06/29/18at 23:52; Admin Dose 100 MLS/HR; Start 06/29/18 at 22:30 Diagnostic Test (Pha) (Accu-Chek) 1 ea 02 XX Last administered on 06/30/18at 02:36; Admin Dose 1 EA; Start 06/30/18 at 02:00 Insulin Glargine (Lantus) 10 units DAILY@2000 SC Last administered on 06/30/18at 00:01; Admin Dose 10 UNITS; Start 06/29/18 at 22:30 Insulin Aspart (Novolog Insulin Pen) NOVOLOG *MILD* ALGORITHM WITH MEALS BEDTIME SC Last administered on 06/30/18at 12:23; Admin Dose 3 UNIT; Start 06/30/18 at 08:00 Methylprednisolone Sodium Succinate (Solu-Medrol) 40 mg BID IV Last administere d on 06/30/18at 08:33; Admin Dose 40 MG; Start 06/30/18 at 09:00 Insulin Human NPH (Humulin N) 10 unit BID SC Last administered on 06/30/18at 08:46; Admin Dose 10 UNIT; Start 06/30/18 at 09:00 Pantoprazole (Protonix Tab) 40 mg DAILY@06 PO Last administered on 06/30/18at 05:53; Admin Dose 40 MG; Start 06/30/18 at 06:00 Nitroglycerin (Nitroglycerin (Sl Tab) 0.4 Mg) 1 tab Q5M PRN SL ANGINA; Start 06/29/18 at 22:30 Heparin Sodium (Porcine) (Heparin (1000 Units/ml)) 4,000 unit PER PROTOCOL PRN IV aPTT<47; Start 06/29/18 at 22:30 Albuterol/ Ipratropium (Duoneb) 3 ml Q6H RESP THERAPY HHN Last administered on 06/30/18at 08:47; Admin Dose 3 ML; Start 06/30/18 at 02:00 Miscellaneous Information 1 ea NOTE XX ; Start 06/29/18 at 23:00 Glucose (Glutose) 15 gm Q15M PRN PO DECREASED GLUCOSE; Start 06/29/18 at 23:00 Glucose (Glutose) 22.5 gm Q15M PRN PO DECREASED GLUCOSE; Start 06/29/18 at 23:00 Dextrose (D50w Syringe) 25 ml Q15M PRN IV DECREASED GLUCOSE; Start 06/29/18 at 23:00 Dextrose (D50w Syringe) 50 ml Q15M PRN IV DECREASED GLUCOSE; Start 06/29/18 at 23:00 Glucagon (Glucagen) 1 mg Q15M PRN IM DECREASED GLUCOSE; Start 06/29/18 at 23:00 Glucose (Glutose) 15 gm Q15M PRN BUCCAL DECREASED GLUCOSE; Start 06/29/18 at 23:00 Heparin Sodium (Porcine) 250 ml @ 10 mls/hr PER PROTOCOL IV Last administered on 06/30/18at 09:26; Admin Dose 11 MLS/HR; Start 06/29/18 at 23:00 Guaifenesin/ Dextromethorphan (Robitussin Dm Liquid Cup) 10 ml Q4H PRN PO COUGH; Start 06/30/18 at 11:00 Aspirin (Aspirin) 81 mg DAILY PO ; Start 07/01/18 at 09:00; Status UNV Furosemide (Lasix) 40 mg BID DIURETICS IV ; Start 06/30/18 at 18:00; Status UNV AJ CHACON MD Jun 30, 2018 13:59
[2018-06-30] MEDS: DIGOXIN 0.125 MG TAB PO SCH (15:13)
--- NOTE | 2018-06-30 17:25 | RADRPT ---
Echocardiogram Report Patient Name: Leroy REIStient ID: [id number] : [birth year] (83y 2m)Study Date: 06/30/2018 1:45:24 PM Gender: MAccession #: [id number] Tech: [id number] Location: Ref.Physician: JA HERMAN Height(Cm): BSA: Weight(Kg): Quality: AdequateAccount #: Procedures: Echocardiographic Report: Transthoracic echocardiogram with complete 2D, M-Mode, and doppler examination. Indications: Evaluate Left Ventricular function. Measurements: 2D/M Mode Doppler Measurement Value Normal Range Measurement Value Normal Range LVIDd 2D 5.9 [ 4.2 - 5.8 ] cm AV Peak Kaleb 1.2 [ 100.0 - 170.0 ] cm/se c LVIDs 2D 5.1 [ 2.5 - 4.0 ] cm AV Peak PG 6.0 [ 2.0 - 9.0 ] mmHg LVPWd 2D 1.0 [ 0.6 - 1.0 ] cm LVOT Peak Kaleb 0.6 [ 70.0 - 110.0 ] cm/sec IVSd 2D 1.1 [ 0.6 - 1.0 ] cm LVOT Peak PG 1.0 [ 2.0 - 6.0 ] mmHg AoR Diam 2D 3.4 [ 2.6 - 3.4 ] cm MV E Peak Kaleb 1.1 [ 60.0 - 130.0 ] cm/sec EF 2D 28.3 [ 52.0 - 72.0 ] percent MV A Peak Kaleb 0.3 [ 100.0 - 120.0 ] cm/se c LA Dimen 2D 4.7 [ 3.0 - 4.0 ] cm MV E/A 3.1 [ 0.8 - 1.5 ] ratio MV PHT 38.0 [ 20.0 - 100.0 ] msec MV Decel Time 130 [ 104 - 258 ] msec MV Decel Bracken 8 Lat E` Kaleb 0.1 [ 10.0 - 15.0 ] cm/sec Lateral E/E` 18.6 [ 1.0 - 2.0 ] ratio Med E` Kaleb 0.0 cm/sec MV E/A 3.1 [ 0.8 - 1.5 ] ratio MVA PHT 5.8 [ 2.0 - 4.0 ] cm2 TR Peak Kaleb 3.4 [ 100.0 - 280.0 ] cm/se c TR Peak PG 45.0 mmHg PV Peak Kaleb 0.9 [ 40.0 - 80.0 ] cm/sec PV Peak PG 3.0 mmHg RVSP 60.0 [ 10.0 - 36.0 ] mmHg RA Pressure 15.0 mmHg Findings: Left Ventricle: Normal left ventricular cavity size. Mild concentric left ventricular hypertrophy. Moderate global left ventricular systolic dysfunction. Ejection fraction is visually estimated at 30 %. Tissue Doppler/Mitral Doppler indices are consistent with restrictive physiology with markedly elevated left atrial pressure (Stage III-IV diastolic dysfunction). These segments of the LV are hypokinetic mid anterior segment, apical anterior segment, apical lateral segment, inferior apex segment, inferoseptum mid segment, apex and apical septum. Right Ventricle: Normal right ventricular size. Normal right ventricular systolic function. Left Atrium: There is moderate enlargement of left atrium. Right Atrium: The right atrium is normal in size. Mitral Valve: Mitral valve leaflets appear mildly thickened. Mild mitral annular calcification. Mild mitral valve regurgitation. Aortic Valve: Aortic cusps appear mildly calcified. Trace to mild aortic valve regurgitation. Tricuspid Valve: Normal appearance of the tricuspid valve. Estimated peak PA systolic pressure 60 mmHg. There is mild to moderate tricuspid regurgitation. Pulmonic Valve: Normal pulmonic valve appearance. Pericardium: Normal pericardium with no significant pericardial effusion. Right pleural effusion seen. Aorta: Normal aortic root. IVC: Normal size and normal respiratory collapse consistent with normal right atrial pressure. Conclusions: Normal left ventricular cavity size. Mild concentric left ventricular hypertrophy. Moderate global left ventricular systolic dysfunction. Ejection fraction is visually estimated at 30 %. Tissue Doppler/Mitral Doppler indices are consistent with restrictive physiology with markedly elevated left atrial pressure (Stage III-IV diastolic dysfunction). These segments of the LV are hypokinetic mid anterior segment, apical anterior segment, apical lateral segment, inferior apex segment, inferoseptum mid segment, apex and apical septum. There is moderate enlargement of left atrium. Mitral valve leaflets appear mildly thickened. Mild mitral annular calcification. Mild mitral valve regurgitation. Aortic cusps appear mildly calcified. Trace to mild aortic valve regurgitation. Normal appearance of the tricuspid valve. Estimated peak PA systolic pressure 60 mmHg. There is mild to moderate tricuspid regurgitation. Normal pericardium with no significant pericardial effusion. Right pleural effusion seen. Electronically Signed By: Ja Herman 2018-06-30 17:24:58 PST
[2018-06-30] MEDS: FUROSEMIDE 40 MG INJ IV SCH (18:00)
[2018-06-30] MEDS: ATORVASTATIN 40 MG TAB PO SCH (20:57)
[2018-06-30] MEDS: DOXAZOSIN 4 MG TAB PO SCH (20:57)
[2018-06-30] MEDS: CEFTRIAXONE 1 GM/50 ML (PMX) 50 ML IVPB SCH (21:27)
[2018-07-01] VITALS (40 sets, daily range): BP systolic 113–156; BP diastolic 56–119; PULSE 55–82; RESP 15–28
[2018-07-01] MEDS: HEPARIN 25000 UNITS/250 ML 250 ML IV SCH ×2 (00:08→07:01)
[2018-07-01] MEDS: ALBUTEROL/IPRATROPIUM (NEB) 3 ML AMP HHN SCH ×4 (02:00→20:00)
[2018-07-01] MEDS: ACCU-CHEK XX SCH (02:18)
[2018-07-01] MEDS: PANTOPRAZOLE (EC) 40 MG TAB PO SCH (06:00)
[2018-07-01] MEDS: FUROSEMIDE 40 MG INJ IV SCH ×2 (06:10→21:04)
[2018-07-01] MEDS: INSULIN ASPART [NOVOLOG] 3 ML PEN SC SCH ×5 (08:00→21:59)
[2018-07-01] MEDS: METHYLPREDNISOLONE 40 MG INJ IV SCH ×2 (08:39→21:04)
[2018-07-01] MEDS: ASPIRIN 81 MG TAB PO SCH (08:40)
[2018-07-01] MEDS: NPH, HUMAN INSULIN ISOPHANE 3ML VIAL SC SCH ×2 (08:45→22:00)
[2018-07-01] MEDS: DOCUSATE SODIUM 100 MG CAP PO SCH ×2 (08:52→22:03)
[2018-07-01] MEDS: SPIRONOLACTONE 25 MG TAB PO SCH (08:53)
[2018-07-01] MEDS: LINAGLIPTIN 5 MG TABLET PO SCH (08:54)
[2018-07-01] MEDS: BENAZEPRIL 40 MG TAB PO SCH (08:54)
[2018-07-01] MEDS: DIGOXIN 0.125 MG TAB PO SCH (13:00)
--- NOTE | 2018-07-01 16:29 | CONS ---
Consult Date/Type/Reason Admit Date/Time Jun 29, 2018 at 19:13 Initial Consult Date 06/30/18 Type of Consultation: cv Requesting Provider: MOSHE YOUNG Date/Time of Note DATE: 07/01/18 TIME: 16:25 Subjective Interventional cardiology follow-up progress note Subjective: Case discussed with the staff and telemetry was reviewed. Patient remains in normal sinus rhythm. Discussed with multiple physiciansnurse practitioner/RN Patient denies any left-sided chest pain or pressure to me Patient shortness of breath has significantly improved Denies any bleeding to me Objective: General: Obese gentleman in respiratory distress HEENT: NC/AT. pupils are equal. round. NECK: NO JVD. no stridor. CV: RRR. systolic murmur; no gallop or rubs. PULM: no wheezing + rhonchi. GI: SOFT, NT, ND, no rebound or guarding Extremity: 1+ B/L LE edema. no clubbing. neuro: awake and alert, OX3. Psych: calm and pleasant rectal: deferred : normal EKG was personally reviewed showed normal sinus rhythm anteroseptal infarct age undetermined. Marked ST-T wave abnormality. LVH Chest x-ray was personally reviewed which is consistent with congestive heart failure Echocardiogram was personally reviewed which shows: Normal left ventricular cavity size. Mild concentric left ventricular hypertrophy. Moderate global left ventricular systolic dysfunction. Ejection fraction is visually estimated at 30 %. Tissue Doppler/Mitral Doppler indices are consistent with restrictive physiology with markedly elevated left atrial pressure (Stage III-IV diastolic dysfunction). These segments of the LV are hypokinetic mid anterior segment, apical anterior segment, apical lateral segment, inferior apex segment, inferoseptum mid segment, apex and apical septum. There is moderate enlargement of left atrium. Mitral valve leaflets appear mildly thickened. Mild mitral annular calcification. Mild mitral valve regurgitation. Aortic cusps appear mildly calcified. Trace to mild aortic valve regurgitation. Normal appearance of the tricuspid valve. Estimated peak PA systolic pressure 60 mmHg. There is mild to moderate tricuspid regurgitation. Normal pericardium with no significant pericardial effusion. Right pleural effusion seen. Objective Vitals Vital Signs Date Temp Pulse Resp B/P (MAP) Pulse Ox O2 O2 Flow FiO2 Time Delivery Rate 07/01/18 74 16:01 07/01/18 97.6 22 135/80 94 Room Air 15:44 (98) 07/01/18 2.0 08:00 06/29/18 21 17:56 Intake and Output 06/30/18 06/30/18 07/01/18 1515:00 23:00 07:00 IntakeIntake Total 96 ml 694.5 ml 500 ml OutputOutput Total 1300 ml 850 ml BalanceBalance 96 ml -605.5 ml -350 ml Results/Medications Result Diagram: 07/01/18 0552 07/01/18 0552 Results 24 hrs Laboratory Tests Test 06/30/18 17:15 06/30/18 20:27 06/30/18 23:06 07/01/18 02:10 Bedside Glucose 311 H 305 H 243 H Activated 88.0 *H Partial Thromboplast Time Test 07/01/18 05:52 07/01/18 07:42 07/01/18 11:48 07/01/18 13:33 White Blood Count 9.1 # Red Blood Count 3.81 L Hemoglobin 11.2 L Hematocrit 32.8 L Mean Corpuscular 86.1 Volume Mean Corpuscular 29.4 Hemoglobin Mean Corpuscular 34.1 Hemoglobin Concent Red Cell 12.4 Distribution Width Platelet Count 186 Mean Platelet Volume 10.4 Immature 0.600 H Granulocytes % Neutrophils % 86.7 H Lymphocytes % 7.4 L Monocytes % 5.1 Eosinophils % 0.0 Basophils % 0.2 Nucleated Red Blood 0.0 Cells % Immature 0.050 H Granulocytes # Neutrophils # 7.9 H Lymphocytes # 0.7 L Monocytes # 0.5 Eosinophils # 0.0 Basophils # 0.0 Nucleated Red Blood 0.0 Cells # Prothrombin Time 14.8 # Prothrombin Time 1.2 Ratio INR International 1.15 Normalized Ratio Activated 71.8 *H 53.5 H Partial Thromboplast Time Sodium Level 136 Potassium Level 4.2 Chloride Level 92 L Carbon Dioxide Level 31 Anion Gap 13 # Blood Urea Nitrogen 28 H Creatinine 0.82 Est Glomerular Filtrat Rate mL/min Glucose Level 270 H Hemoglobin A1c 11.0 H Calcium Level 8.9 Magnesium Level 1.4 L Total Bilirubin 0.2 Direct Bilirubin 0.00 Indirect Bilirubin 0.2 Aspartate Amino 29 Transf (AST/SGOT) Alanine 31 Aminotransferase (AL T/SGPT) Alkaline Phosphatase 87 Creatine Kinase 71 Creatine Kinase 3.7 Index Creatinine Kinase MB 2.66 H (Mass) Troponin I 0.967 *H B-Type Natriuretic 5630 H Peptide Total Protein 6.5 Albumin 3.4 Globulin 3.10 Albumin/Globulin 1.09 Ratio Triglycerides Level 54 Cholesterol Level 79 L LDL Cholesterol, 45 # Calculated HDL Cholesterol 23 L Cholesterol/HDL 3.4 Ratio Thyroid Stimulating 1.450 Hormone (TSH) Free Thyroxine 1.61 Bedside Glucose 246 H 253 H Home Meds Active Scripts Lidocaine (Lidoderm) 1 Each Adh..patch, 1 EACH TP DAILY for 7 Days Prov:ERIK CAPUTO PA-C 09/15/17 Ibuprofen* (Motrin*) 600 Mg Tab, 600 MG PO Q6H PRN for PAIN AND OR ELEVATED T EMP, #30 TAB Prov:ERIK CAPUTO PA-C 09/15/17 Docusate Sodium* (Colace*) 100 Mg Capsule, 100 MG PO BID, #30 CAP Prov:SANJUANA CARTAGENA MD 07/13/17 Acetaminophen* (Tylophen*) 500 Mg Capsule, 1 CAP PO Q6H PRN for PAIN AND OR ELEVATED TEMP, #20 CAP Prov:SANJUANA CARTAGENA MD 07/13/17 Sennosides* (Senna Lax*) 8.6 Mg Tablet, 1 TAB PO BID PRN for CONSTIPATION, #14 TAB Prov:KALYANI MIX DO 04/04/16 Spironolactone* (Aldactone*) 25 Mg Tab, 25 MG PO DAILY for 30 Days, TAB Prov:SRAVANTHI GUADALUPE 09/20/15 Ondansetron Hcl* (Zofran* ODT) 4 mg -ODT Tab.disper, 4 MG PO Q6 PRN for NAUSEA AND/OR VOMITING, #10 TAB Prov:GREGG ZAMORA NP 09/07/15 Reported Medications Doxazosin Mesylate* (Doxazosin Mesylate*) 8 Mg Tablet, 8 MG PO HS, TAB 09/10/15 Sitagliptin* (Januvia*) 100 Mg Tablet, 100 MG PO DAILY, #30 TAB 09/10/15 Metformin* (Glucophage*) 1,000 Mg Tablet, 1000 MG PO BID, #60 TAB 09/10/15 Atorvastatin* (Atorvastatin*) 40 Mg Tablet, 40 MG PO QHS, #30 TAB 09/10/15 Benazepril Hcl* (Benazepril Hcl*) 40 Mg Tablet, 40 MG PO DAILY, TAB 06/20/14 Discontinued Scripts Acetaminophen (TYLENOL 325 MG TAB) 325 Mg Tab, 650 MG PO Q6H PRN for PAIN LEVEL 1-3 OR FEVER, #1 TAB Prov:ANGEL DEUTSCH MD 06/24/14 Medications Current Medications Acetaminophen (Tylenol Tab) 650 mg Q6H PRN PO MILD PAIN(1-3)OR ELEVATED TEMP; Start 06/29/18 at 22:00 Atorvastatin Calcium (Lipitor) 40 mg QHS PO Last administered on 06/30/18 20:57; Admin Dose 40 MG; Start 06/30/18 at 21:00 Benazepril HCl (Lotensin) 10 mg DAILY PO Last administered on 07/01/18 08:54; Admin Dose 10 MG; Start 06/30/18 at 09:00 Docusate Sodium (Colace) 100 mg BID PO Last administered on 07/01/18 08:52; Admin Dose 100 MG; Start 06/30/18 at 09:00 Doxazosin Mesylate (Cardura) 8 mg HS PO Last administered on 06/30/18 20:57; Admin Dose 8 MG; Start 06/30/18 at 21:00 Ibuprofen (Motrin) 600 mg Q6H PRN PO MILD PAIN(1-3)OR ELEVATED TEMP; Start 06/29/18 at 22:00 Lidocaine (Lidoderm) 5 patch DAILY PRN TD PAIN; Start 06/29/18 at 22:00 Metformin HCl (Glucophage) 1,000 mg BID WITH MEALS PO Last administered on 06/30/18at 08:34; Admin Dose 1,000 MG; Start 06/30/18 at 08:00; Status Hold Spironolactone (Aldactone) 25 mg DAILY PO Last administered on 07/01/18 08:53; Admin Dose 25 MG; Start 06/30/18 at 09:00 Linagliptin (Tradjenta) 5 mg DAILY PO Last administered on 07/01/18 08:54; Admin Dose 5 MG; Start 06/30/18 at 09:00 Ondansetron HCl (Zofran Inj) 4 mg Q6H PRN IV NAUSEA AND/OR VOMITING; Start 06/29/18 at 22:30 Ceftriaxone Sodium 50 ml @ 100 mls/hr Q24H IVPB Last administered on 06/30/18 21:27; Admin Dose 100 MLS/HR; Start 06/29/18 at 22:30 Diagnostic Test (Pha) (Accu-Chek) 1 ea 02 XX Last administered on 07/01/18 02:18; Admin Dose 1 EA; Start 06/30/18 at 02:00 Insulin Glargine (Lantus) 10 units DAILY@2000 SC Last administered on 06/30/18 20:56; Admin Dose 10 UNITS; Start 06/29/18 at 22:30 Insulin Aspart (Novolog Insulin Pen) NOVOLOG *MILD* ALGORITHM WITH MEALS BEDTIME SC Last administered on 07/01/18 11:53; Admin Dose 3 UNIT; Start at 08:00 Methylprednisolone Sodium Succinate (Solu-Medrol) 40 mg BID IV Last administered on 07/01/18 08:39; Admin Dose 40 MG; Start 06/30/18 at 09:00 Insulin Human NPH (Humulin N) 10 unit BID SC Last administered on 07/01/18 08:45; Admin Dose 10 UNIT; Start 06/30/18 at 09:00 Pantoprazole (Protonix Tab) 40 mg DAILY@06 PO Last administered on 06/30/18 05:53; Admin Dose 40 MG; Start 06/30/18 at 06:00 Nitroglycerin (Nitroglycerin (Sl Tab) 0.4 Mg) 1 tab Q5M PRN SL ANGINA; Start 06/29/18 at 22:30 Heparin Sodium (Porcine) (Heparin (1000 Units/ml)) 4,000 unit PER PROTOCOL PRN IV aPTT<47; Start 06/29/18 at 22:30 Albuterol/ Ipratropium (Duoneb) 3 ml Q6H RESP THERAPY HHN Last administered on 07/01/18 07:53; Admin Dose 3 ML; Start 06/30/18 at 02:00 Miscellaneous Information 1 ea NOTE XX ; Start 06/29/18 at 23:00 Glucose (Glutose) 15 gm Q15M PRN PO DECREASED GLUCOSE; Start 06/29/18 at 23:00 Glucose (Glutose) 22.5 gm Q15M PRN PO DECREASED GLUCOSE; Start 06/29/18 at 23:00 Dextrose (D50w Syringe) 25 ml Q15M PRN IV DECREASED GLUCOSE; Start 06/29/18 at 23:00 Dextrose (D50w Syringe) 50 ml Q15M PRN IV DECREASED GLUCOSE; Start 06/29/18 at 23:00 Glucagon (Glucagen) 1 mg Q15M PRN IM DECREASED GLUCOSE; Start 06/29/18 at 23:00 Glucose (Glutose) 15 gm Q15M PRN BUCCAL DECREASED GLUCOSE; Start 06/29/18 at 23:00 Heparin Sodium (Porcine) 250 ml @ 10 mls/hr PER PROTOCOL IV Last administered on 07/01/18at 07:01; Admin Dose 10.5 MLS/HR; Start 06/29/18 at 23:00 Guaifenesin/ Dextromethorphan (Robitussin Dm Liquid Cup) 10 ml Q4H PRN PO COUGH; Start 06/30/18 at 11:00 Aspirin (Aspirin) 81 mg DAILY PO Last administered on 07/01/18at 08:40; Admin Dose 81 MG; Start 07/01/18 at 09:00 Furosemide (Lasix) 40 mg BID DIURETICS IV Last administered on 07/01/18at 06:10; Admin Dose 40 MG; Start 06/30/18 at 18:00 Digoxin (Digoxin) 0.125 mg DAILY@13 PO Last administered on 06/30/18at 15:13; A dmin Dose 0.125 MG; Start 06/30/18 at 14:30 Carvedilol (Coreg) 3.125 mg BID PO Last administered on 07/01/18at 08:53; Admin Dose 3.125 MG; Start 06/30/18 at 21:00 Magnesium Sulfate 100 ml @ 25 mls/hr ONCE ONCE IVPB ; Start 07/01/18 at 17:30; Stop 07/01/18 at 21:29 Assessment/Plan Hospital Course (Demo Recall) 1. Non-ST elevation myocardial infarction 2. Congestive heart failure: Acute due to systolic heart failure 3. Severe ischemic cardiomyopathy 4. Diabetes 5. Hypertension 6. Dyslipidemia 7. Anemia Recommendations: We will stop the heparin drip now. Patient is to be taken for cardiac catheterization Continue Lasix Lasix to 40 mg IV twice daily and will adjust as needed Aldactone Digoxin Continue with carvedilol Continue with MYAH inhibitor as tolerated Plan for left heart catheterization coronary angiogram possible percutaneous coronary intervention today. Risks benefits alternatives of heart catheterization coronary angiogram percutaneous coronary intervention discussed with the patient in detail. Including but not limited to risk of infection vascular complication bleeding complication CO stroke arrhythmia renal failure etc. patient has consented to procedure Thank you for this referral. We will continue to follow along with you JA CHACON MD [facility] JA CHACON MD Jul 01, 2018 16:29
[2018-07-01] MEDS ORDERED: HEPARIN 1000 UNITS/ML 10 ML INJ ONE (16:32)
[2018-07-01] MEDS ORDERED: IODIXANOL LOCM 100 ML BTL ONE (16:32)
[2018-07-01] MEDS ORDERED: FENTAnyl 50 MCG/ML VIAL ONE (16:32)
[2018-07-01] MEDS ORDERED: LIDOCAINE 1% (MDV) 20 ML INJ ONE (16:32)
[2018-07-01] MEDS ORDERED: MIDAZOLAM 1 MG/ML 2 ML INJ ONE (16:32)
[2018-07-01] MEDS ORDERED: VERAPAMIL 5 MG INJ ONE (16:33)
[2018-07-01] MEDS ORDERED: NITROGLYCERIN (IC) 100 MCG/ML INJ ONE (16:33)
[2018-07-01] MEDS ORDERED: SOD CHLORIDE 0.9% 500 ML ONE (17:04)
[2018-07-01] MEDS ORDERED: PRASUGREL HYDROCHLORIDE 10 MG TABLET PO ONE (17:05)
[2018-07-01] MEDS ORDERED: BIVALIRUDIN 250MG /NS 50 ML 50 ML IVPB ONE ×2 (17:08→17:26)
[2018-07-01] MEDS ORDERED: MAGNESIUM SULFATE 4 GM/100 ML 100 ML IVPB ONE (17:30)
--- NOTE | 2018-07-01 17:33 | PN ---
Date/Time of Note Date/Time of Note DATE: 07/01/18 TIME: 17:28 Assessment/Plan VTE Prophylaxis Risk score (from Ns)>0 risk: 5 SCD applied (from Ns): Yes Pharmacological prophylaxis: heparin Lines/Catheters IV C[facility]ter [facility]from [facility] Assessment/Plan Hospital Course Patient was taken to cardiac cath Assessment/Plan -Non-ST elevation myocardial infarction. Dr. Herman is following in cardiology consultation. -Acute systolic congestive heart failure -Severe ischemic cardiomyopathy -Poorly controlled diabetes mellitus type 2 with hemoglobin A1c of 11. Continue Lantus and pre-meal NovoLog. -Hypertension -Dyslipidemia -Anemia Further recommendations based on clinical course. Plan of care discussed with Dr. Lawson Result Diagram: 07/01/18 0552 07/01/18 0552 Results 24hrs Laboratory Tests Test 06/30/18 20:27 06/30/18 23:06 07/01/18 02:10 07/01/18 05:52 Bedside Glucose 305 H 243 H Activated 88.0 *H 71.8 *H Partial Thromboplast Time White Blood Count 9.1 # Red Blood Count 3.81 L Hemoglobin 11.2 L Hematocrit 32.8 L Mean Corpuscular 86.1 Volume Mean Corpuscular 29.4 Hemoglobin Mean Corpuscular 34.1 Hemoglobin Concent Red Cell 12.4 Distribution Width Platelet Count 186 Mean Platelet Volume 10.4 Immature 0.600 H Granulocytes % Neutrophils % 86.7 H Lymphocytes % 7.4 L Monocytes % 5.1 Eosinophils % 0.0 Basophils % 0.2 Nucleated Red Blood 0.0 Cells % Immature 0.050 H Granulocytes # Neutrophils # 7.9 H Lymphocytes # 0.7 L Monocytes # 0.5 Eosinophils # 0.0 Basophils # 0.0 Nucleated Red Blood 0.0 Cells # Prothrombin Time 14.8 # Prothrombin Time 1.2 Ratio INR International 1.15 Normalized Ratio Sodium Level 136 Potassium Level 4.2 Chloride Level 92 L Carbon Dioxide Level 31 Anion Gap 13 # Blood Urea Nitrogen 28 H Creatinine 0.82 Est Glomerular Filtrat Rate mL/min Glucose Level 270 H Hemoglobin A1c 11.0 H Calcium Level 8.9 Magnesium Level 1.4 L Total Bilirubin 0.2 Direct Bilirubin 0.00 Indirect Bilirubin 0.2 Aspartate Amino 29 Transf (AST/SGOT) Alanine 31 Aminotransferase (AL T/SGPT) Alkaline Phosphatase 87 Creatine Kinase 71 Creatine Kinase 3.7 Index Creatinine Kinase MB 2.66 H (Mass) Troponin I 0.967 *H B-Type Natriuretic 5630 H Peptide Total Protein 6.5 Albumin 3.4 Globulin 3.10 Albumin/Globulin 1.09 Ratio Triglycerides Level 54 Cholesterol Level 79 L LDL Cholesterol, 45 # Calculated HDL Cholesterol 23 L Cholesterol/HDL 3.4 Ratio Thyroid Stimulating 1.450 Hormone (TSH) Free Thyroxine 1.61 Test 07/01/18 07:42 07/01/18 11:48 07/01/18 13:33 Bedside Glucose 246 H 253 H Activated 53.5 H Partial Thromboplast Time Exam/Review of Systems Exam Vitals Vital Signs Date Temp Pulse Resp B/P (MAP) Pulse Ox O2 O2 Flow FiO2 Time Delivery Rate 07/01/18 74 16:01 07/01/18 97.6 22 135/80 94 Room Air 15:44 (98) 07/01/18 2.0 08:00 06/29/18 21 17:56 Intake and Output 06/30/18 06/30/18 07/01/18 1414:59 22:59 06:59 IntakeIntake Total 96 ml 694.5 ml 500 ml OutputOutput Total 1300 ml 850 ml BalanceBalance 96 ml -605.5 ml -350 ml Results Results 24hrs Laboratory Tests Test 06/30/18 20:27 06/30/18 23:06 07/01/18 02:10 07/01/18 05:52 Bedside Glucose 305 H 243 H Activated 88.0 *H 71.8 *H Partial Thromboplast Time White Blood Count 9.1 # Red Blood Count 3.81 L Hemoglobin 11.2 L Hematocrit 32.8 L Mean Corpuscular 86.1 Volume Mean Corpuscular 29.4 Hemoglobin Mean Corpuscular 34.1 Hemoglobin Concent Red Cell 12.4 Distribution Width Platelet Count 186 Mean Platelet Volume 10.4 Immature 0.600 H Granulocytes % Neutrophils % 86.7 H Lymphocytes % 7.4 L Monocytes % 5.1 Eosinophils % 0.0 Basophils % 0.2 Nucleated Red Blood 0.0 Cells % Immature 0.050 H Granulocytes # Neutrophils # 7.9 H Lymphocytes # 0.7 L Monocytes # 0.5 Eosinophils # 0.0 Basophils # 0.0 Nucleated Red Blood 0.0 Cells # Prothrombin Time 14.8 # Prothrombin Time 1.2 Ratio INR International 1.15 Normalized Ratio Sodium Level 136 Potassium Level 4.2 Chloride Level 92 L Carbon Dioxide Level 31 Anion Gap 13 # Blood Urea Nitrogen 28 H Creatinine 0.82 Est Glomerular Filtrat Rate mL/min Glucose Level 270 H Hemoglobin A1c 11.0 H Calcium Level 8.9 Magnesium Level 1.4 L Total Bilirubin 0.2 Direct Bilirubin 0.00 Indirect Bilirubin 0.2 Aspartate Amino 29 Transf (AST/SGOT) Alanine 31 Aminotransferase (AL T/SGPT) Alkaline Phosphatase 87 Creatine Kinase 71 Creatine Kinase 3.7 Index Creatinine Kinase MB 2.66 H (Mass) Troponin I 0.967 *H B-Type Natriuretic 5630 H Peptide Total Protein 6.5 Albumin 3.4 Globulin 3.10 Albumin/Globulin 1.09 Ratio Triglycerides Level 54 Cholesterol Level 79 L LDL Cholesterol, 45 # Calculated HDL Cholesterol 23 L Cholesterol/HDL 3.4 Ratio Thyroid Stimulating 1.450 Hormone (TSH) Free Thyroxine 1.61 Test 07/01/18 07:42 07/01/18 11:48 07/01/18 13:33 Bedside Glucose 246 H 253 H Activated 53.5 H Partial Thromboplast Time Medications Medication Current Medications Acetaminophen (Tylenol Tab) 650 mg Q6H PRN PO MILD PAIN(1-3)OR ELEVATED TEMP; Start 06/29/18 at 22:00 Atorvastatin Calcium (Lipitor) 40 mg QHS PO Last administered on 06/30/18 20:57; Admin Dose 40 MG; Start 06/30/18 at 21:00 Benazepril HCl (Lotensin) 10 mg DAILY PO Last administered on 07/01/18 08:54; Admin Dose 10 MG; Start 06/30/18 at 09:00 Docusate Sodium (Colace) 100 mg BID PO Last administered on 07/01/18 08:52; Admin Dose 100 MG; Start 06/30/18 at 09:00 Doxazosin Mesylate (Cardura) 8 mg HS PO Last administered on 06/30/18 20:57; Admin Dose 8 MG; Start 06/30/18 at 21:00 Ibuprofen (Motrin) 600 mg Q6H PRN PO MILD PAIN(1-3)OR ELEVATED TEMP; Start 06/29/18 at 22:00 Lidocaine (Lidoderm) 5 patch DAILY PRN TD PAIN; Start 06/29/18 at 22:00 Metformin HCl (Glucophage) 1,000 mg BID WITH MEALS PO Last administered on 06/30/18 08:34; Admin Dose 1,000 MG; Start 06/30/18 at 08:00; Status Hold Spironolactone (Aldactone) 25 mg DAILY PO Last administered on 07/01/18 08:53; Admin Dose 25 MG; Start 06/30/18 at 09:00 Linagliptin (Tradjenta) 5 mg DAILY PO Last administered on 07/01/18 08:54; Admin Dose 5 MG; Start 06/30/18 at 09:00 Ondansetron HCl (Zofran Inj) 4 mg Q6H PRN IV NAUSEA AND/OR VOMITING; Start 06/29/18 at 22:30 Ceftriaxone Sodium 50 ml @ 100 mls/hr Q24H IVPB Last administered on 06/30/18 21:27; Admin Dose 100 MLS/HR; Start 06/29/18 at 22:30 Diagnostic Test (Pha) (Accu-Chek) 1 ea 02 XX Last administered on 07/01/18 02:18; Admin Dose 1 EA; Start 06/30/18 at 02:00 Insulin Glargine (Lantus) 10 units DAILY@2000 SC Last administered on 06/30/18 20:56; Admin Dose 10 UNITS; Start 06/29/18 at 22:30 Insulin Aspart (Novolog Insulin Pen) NOVOLOG *MILD* ALGORITHM WITH MEALS BEDTIME SC Last administered on 07/01/18 11:53; Admin Dose 3 UNIT; Start 06/30/18 at 08:00 Methylprednisolone Sodium Succinate (Solu-Medrol) 40 mg BID IV Last administered on 07/01/18 08:39; Admin Dose 40 MG; Start 06/30/18 at 09:00 Insulin Human NPH (Humulin N) 10 unit BID SC Last administered on 07/01/18 08:45; Admin Dose 10 UNIT; Start 06/30/18 at 09:00 Pantoprazole (Protonix Tab) 40 mg DAILY@06 PO Last administered on 06/30/18 05:53; Admin Dose 40 MG; Start 06/30/18 at 06:00 Nitroglycerin (Nitroglycerin (Sl Tab) 0.4 Mg) 1 tab Q5M PRN SL ANGINA; Start 06/29/18 at 22:30 Heparin Sodium (Porcine) (Heparin (1000 Units/ml)) 4,000 unit PER PROTOCOL PRN IV aPTT<47; Start 06/29/18 at 22:30 Albuterol/ Ipratropium (Duoneb) 3 ml Q6H RESP THERAPY HHN Last administered on 07/01/18at 07:53; Admin Dose 3 ML; Start 06/30/18 at 02:00 Miscellaneous Information 1 ea NOTE XX ; Start 06/29/18 at 23:00 Glucose (Glutose) 15 gm Q15M PRN PO DECREASED GLUCOSE; Start 06/29/18 at 23:00 Glucose (Glutose) 22.5 gm Q15M PRN PO DECREASED GLUCOSE; Start 06/29/18 at 23:00 Dextrose (D50w Syringe) 25 ml Q15M PRN IV DECREASED GLUCOSE; Start 06/29/18 at 23:00 Dextrose (D50w Syringe) 50 ml Q15M PRN IV DECREASED GLUCOSE; Start 06/29/18 at 23:00 Glucagon (Glucagen) 1 mg Q15M PRN IM DECREASED GLUCOSE; Start 06/29/18 at 23:00 Glucose (Glutose) 15 gm Q15M PRN BUCCAL DECREASED GLUCOSE; Start 06/29/18 at 23:00 Guaifenesin/ Dextromethorphan (Robitussin Dm Liquid Cup) 10 ml Q4H PRN PO COUGH ; Start 06/30/18 at 11:00 Aspirin (Aspirin) 81 mg DAILY PO Last administered on 07/01/18at 08:40; Admin Dose 81 MG; Start 07/01/18 at 09:00 Furosemide (Lasix) 40 mg BID DIURETICS IV Last administered on 07/01/18at 06:10; Admin Dose 40 MG; Start 06/30/18 at 18:00 Digoxin (Digoxin) 0.125 mg DAILY@13 PO Last administered on 06/30/18at 15:13; Admin Dose 0.125 MG; Start 06/30/18 at 14:30 Carvedilol (Coreg) 3.125 mg BID PO Last administered on 07/01/18at 08:53; Admin Dose 3.125 MG; Start 06/30/18 at 21:00 Magnesium Sulfate 100 ml @ 25 mls/hr ONCE ONCE IVPB ; Start 07/01/18 at 17:30; Stop 07/01/18 at 21:29 SRAVANTHI GUADALUPE Jul 01, 2018 17:33
[2018-07-01] MEDS ORDERED: SOD CHLORIDE 0.9% 1,000 ML IV SCH (17:52)
[2018-07-01] MEDS ORDERED: BIVALIRUDIN 250 MG in SOD CHLORIDE 0.9% 500 ML IV SCH (18:00)
--- NOTE | 2018-07-01 18:03 | OPR ---
Date/Time of Note Date/Time of Note DATE: 07/01/18 TIME: 17:56 Operative Report Procedure Date: Jul 01, 2018 Preoperative Diagnosis NSTEMI CHF class IV Postoperative Diagnosis same Operation/Procedure Performed pci rca Surgeon see signature line Foundation Stage Teacher otis Anesthesia Type: moderate sedation Estimated Blood Loss: minimal Transfusion none Specimen none Grafts/Implants none Complications none Procedure Description Physician Executive: Ja Herman MD Indication: 83-year-old gentleman with multiple comorbidities including diabetes hypertension dyslipidemia who presented with congestive heart failure class IV and minus elevation myocardial infarction and severe LV dysfunction Procure performed: #1 left heart catheterization and selective right and left coronary angiogram #2 Right femoral angiogram and closure using a Perclose device 3. Successful PTCA and stenting of large posterior descending artery using a 3 x 24 mm Synergy drug-eluting stent 4. Moderate sedation for more than 60 minutes Findings: 1. Left main: is long and calcified with 40% diffuse distal stenosis. 2. LAD: Is 100% occluded at the ostium consistent with chronic total occlusion. There is some distal collaterals noted 3. Left circumflex artery: is heavily calcified nondominant. it has 50 % stenosis 4. Ramus intermediate is a moderate-sized vessel with heavily calcified with about 50% stenosis 5. RCA: is very large and dominant. It is heavily calcified throughout the ves nancy. It bifurcates into a posterior descending artery and has multiple posterolateral artery branches it has 50 % proximal stenosis with 60% heavily calcified distal stenosis at the site of the PDA and posterolateral. PDA itself is heavily calcified with 99% heavily calcified mid lesion. The successful is PCI of this lesion no significant residual stenosis left 5. LV EDP is about 23. Significant gradient across the aortic valve with pullback Procedure in detail: Written informed consent with obtained after risks benefits and alternatives discussed with the patient in detail. risks including but not limited to risk of infection vascular complications, bleeding complications, [place] stroke arrhythmia renal failure at even were discussed with the patient in detail. Patient was brought into the cardiac rn cardiac cath and placed in supine position. Right and left groin area was prepped and draped in regular sterile fashion and then he was in anesthetized using 1% lidocaine. Right femoral artery was cannulated and using modified seldinger technique a 6 [place] sheath was placed in the femoral artery. Femoral angiogram was performed JL4 guiding catheter was advanced to engage the left main coronary artery angiographic view was obtained. JR4 catheter was advanced and engaged into the right coronary artery and angiographic view was obtained. Then a AL 0.75 was advanced to engage the left ventricle hemodynamics as recorded by pullback aortic pressure was measured. At this time we decided to perform PCI of the right coronary artery. A AL 0.75 guid was advanced to engage the right coronary artery. PT wire was used but could not cross into the lesion. I use a run through wire and advanced across the lesion and placed distal to the lesion. I used a 2.5 x 12 mm balloon which was placed across the lesion and predilated the vessel. I used a 2.5 x 12 mm noncompliant balloon to predilate the vessel more. Then I used a 2.75 x 24 mm stent but it could not cross. Another bite was used as a chris wire again could not cross due to heavy calcification and angulation. Finally a [place] extension catheter was used and advanced all the way to the distal right coronary artery. With the assistance of this I was able to advance the 2.75 x 24 mm Synergy drug-eluting across the lesion which was placed across the lesion and deployed at 16 [place]. Finally a 3 x 8 mm noncompliant balloon was used and postdilated the stent and up to 18 Fernie. Final angiographic view was obtained which showed IDANIA-3 flow no evidence of dissection and no significant residual stenosis at the site of the stent. perclose was successfully deployed. Patient tolerated the procedure well with no complication. . contrast used: 100 cc Visipaque Conclusions: Successful PTCA stenting of the posterior descending artery from 99% stenosis to no significant residual stenosis using a 2.75 x 24 mm Synergy drug-eluting stent. Recommendations: Aggressive medical therapy. aspirin indefinitely dual antiplatlet therapy with aspirin and Effient ICU care overnight. JA HERMAN MD [facility] JA HERMAN MD Jul 01, 2018 18:03
[2018-07-01] MEDS: DOXAZOSIN 4 MG TAB PO SCH (21:00)
[2018-07-01] MEDS: INSULIN GLARGINE [LANTus] (100 UNITS/ML) SYG SC SCH (22:01)
[2018-07-01] MEDS: ATORVASTATIN 40 MG TAB PO SCH (22:02)
[2018-07-01] MEDS: CEFTRIAXONE 1 GM/50 ML (PMX) 50 ML IVPB SCH (22:16)
[2018-07-01] MEDS ORDERED: INSULIN GLARGINE [LANTus] (100 UNITS/ML) SYG SC SCH (23:00)
[2018-07-02] VITALS (40 sets, daily range): BP systolic 112–146; BP diastolic 58–94; PULSE 55–93; RESP 16–32
[2018-07-02] MEDS ORDERED: INSULIN ASPART [NOVOLOG] 3 ML PEN SC SCH (01:05)
[2018-07-02] MEDS: ACCU-CHEK XX SCH ×2 (02:00)
[2018-07-02] MEDS: ALBUTEROL/IPRATROPIUM (NEB) 3 ML AMP HHN SCH ×4 (02:00→20:30)
[2018-07-02] MEDS: FUROSEMIDE 40 MG INJ IV SCH ×2 (06:13→17:19)
[2018-07-02] MEDS: PANTOPRAZOLE (EC) 40 MG TAB PO SCH (06:13)
[2018-07-02] MEDS: INSULIN ASPART [NOVOLOG] 3 ML PEN SC SCH ×7 (08:46→21:00)
[2018-07-02] MEDS: NPH, HUMAN INSULIN ISOPHANE 3ML VIAL SC SCH ×2 (08:48→21:24)
--- NOTE | 2018-07-02 08:52 | CONS ---
Consult Date/Type/Reason Admit Date/Time Jun 29, 2018 at 19:13 Initial Consult Date 06/30/18 Type of Consultation: cv Requesting Provider: MOSHE YOUNG Date/Time of Note DATE: 07/02/18 TIME: 08:48 Subjective Interventional cardiology follow-up progress note Subjective: Case discussed with the staff and telemetry was reviewed. Patient remains in normal sinus rhythm. Discussed with multiple physiciansnurse practitioner/RN Patient denies any left-sided chest pain or pressure to me Patient shortness of breath has significantly improved but he still complaining of cough Denies any bleeding to me No groin pain no bleeding Status post PCI of the PDA 07/01/2018 Objective: General: Obese gentleman in respiratory distress HEENT: NC/AT. pupils are equal. round. NECK: NO JVD. no stridor. CV: RRR. systolic murmur; no gallop or rubs. PULM: no wheezing normal rhonchi. GI: SOFT, NT, ND, no rebound or guarding Extremity: 1+ B/L LE edema. no clubbing. neuro: awake and alert, OX3. Psych: calm and pleasant rectal: deferred : normal EKG was personally reviewed showed normal sinus rhythm anteroseptal infarct age undetermined. Marked ST-T wave abnormality. LVH Chest x-ray was personally reviewed which is consistent with congestive heart f ailure Echocardiogram was personally reviewed which shows: Normal left ventricular cavity size. Mild concentric left ventricular hypertrophy. Moderate global left ventricular systolic dysfunction. Ejection fraction is visually estimated at 30 %. Tissue Doppler/Mitral Doppler indices are consistent with restrictive physiology with markedly elevated left atrial pressure (Stage III-IV diastolic dysfunction). These segments of the LV are hypokinetic mid anterior segment, apical anterior segment, apical lateral segment, inferior apex segment, inferoseptum mid segment, apex and apical septum. There is moderate enlargement of left atrium. Mitral valve leaflets appear mildly thickened. Mild mitral annular calcification. Mild mitral valve regurgitation. Aortic cusps appear mildly calcified. Trace to mild aortic valve regurgitation. Normal appearance of the tricuspid valve. Estimated peak PA systolic pressure 60 mmHg. There is mild to moderate tricuspid regurgitation. Normal pericardium with no significant pericardial effusion. Right pleural effusion seen. Objective Vitals Vital Signs Date Temp Pulse Resp B/P (MAP) Pulse Ox O2 O2 Flow FiO2 Time Delivery Rate 07/02/18 55 18 145/72 94 Room Air 07:00 (96) 07/02/18 98.2 04:00 07/01/18 2.0 20:00 06/29/18 21 17:56 Intake and Output 07/01/18 07/01/18 07/02/18 1515:00 23:00 07:00 IntakeIntake Total 480 ml 675 ml 350 ml OutputOutput Total 700 ml 1750 ml 950 ml BalanceBalance -220 ml -1075 ml -600 ml Results/Medications Result Diagram: 07/02/18 0440 07/02/18 0440 Results 24 hrs Laboratory Tests Test 07/01/18 11:48 07/01/18 13:33 07/01/18 18:54 07/01/18 21:14 Bedside Glucose 253 H 291 H 236 H Activated 53.5 H Partial Thromboplast Time Test 07/01/18 21:43 07/01/18 21:55 07/02/18 00:53 07/02/18 04:40 Activated 72.8 *H Partial Thromboplast Time Bedside Glucose 231 H 375 H White Blood Count 8.7 Red Blood Count 4.14 L Hemoglobin 12.2 L Hematocrit 35.5 L Mean Corpuscular 85.7 Volume Mean Corpuscular 29.5 Hemoglobin Mean Corpuscular 34.4 Hemoglobin Concent Red Cell 12.7 Distribution Width Platelet Count 218 Mean Platelet Volume 10.8 H Immature 0.300 Granulocytes % Neutrophils % 87.2 H Lymphocytes % 7.0 L Monocytes % 5.4 Eosinophils % 0.0 Basophils % 0.1 Nucleated Red Blood 0.0 Cells % Immature 0.030 Granulocytes # Neutrophils # 7.5 Lymphocytes # 0.6 L Monocytes # 0.5 Eosinophils # 0.0 Basophils # 0.0 Nucleated Red Blood 0.0 Cells # Sodium Level 137 Potassium Level 4.1 Chloride Level 92 L Carbon Dioxide Level 30 Anion Gap 15 H Blood Urea Nitrogen 27 H Creatinine 0.88 Est Glomerular Filtrat Rate mL/min Glucose Level 356 H Calcium Level 9.1 Magnesium Level 2.0 Total Bilirubin 0.2 Direct Bilirubin 0.00 Indirect Bilirubin 0.2 Aspartate Amino 29 Transf (AST/SGOT) Alanine 35 Aminotransferase (AL T/SGPT) Alkaline Phosphatase 92 Creatine Kinase 44 Creatine Kinase 2.5 Index Creatinine Kinase MB 1.08 (Mass) Troponin I 0.694 *H Total Protein 6.8 Albumin 3.6 Globulin 3.20 Albumin/Globulin 1.12 Ratio Home Meds Active Scripts Lidocaine (Lidoderm) 1 Each Adh..patch, 1 EACH TP DAILY for 7 Days Prov:ERIK CAPUTO PA-C 09/15/17 Ibuprofen* (Motrin*) 600 Mg Tab, 600 MG PO Q6H PRN for PAIN AND OR ELEVATED TEMP, #30 TAB Prov:ERIK CAPUTO PA-C 09/15/17 Docusate Sodium* (Colace*) 100 Mg Capsule, 100 MG PO BID, #30 CAP Prov:SANJUANA CARTAGENA MD 07/13/17 Acetaminophen* (Tylophen*) 500 Mg Capsule, 1 CAP PO Q6H PRN for PAIN AND OR ELEVATED TEMP, #20 CAP Prov:SANJUANA CARTAGENA MD 07/13/17 Sennosides* (Senna Lax*) 8.6 Mg Tablet, 1 TAB PO BID PRN for CONSTIPATION, #14 T AB Prov:KALYANI MIX DO 04/04/16 Spironolactone* (Aldactone*) 25 Mg Tab, 25 MG PO DAILY for 30 Days, TAB Prov:SRAVANTHI GUADALUPE 09/20/15 Ondansetron Hcl* (Zofran* ODT) 4 mg -ODT Tab.disper, 4 MG PO Q6 PRN for NAUSEA AND/OR VOMITING, #10 TAB Prov:GREGG ZAMORA NP 09/07/15 Reported Medications Doxazosin Mesylate* (Doxazosin Mesylate*) 8 Mg Tablet, 8 MG PO HS, TAB 09/10/15 Sitagliptin* (Januvia*) 100 Mg Tablet, 100 MG PO DAILY, #30 TAB 09/10/15 Metformin* (Glucophage*) 1,000 Mg Tablet, 1000 MG PO BID, #60 TAB 09/10/15 Atorvastatin* (Atorvastatin*) 40 Mg Tablet, 40 MG PO QHS, #30 TAB 09/10/15 Benazepril Hcl* (Benazepril Hcl*) 40 Mg Tablet, 40 MG PO DAILY, TAB 06/20/14 Discontinued Scripts Acetaminophen (TYLENOL 325 MG TAB) 325 Mg Tab, 650 MG PO Q6H PRN for PAIN LEVEL 1-3 OR FEVER, #1 TAB Prov:ANGEL DEUTSCH MD 06/24/14 Medications Current Medications Acetaminophen (Tylenol Tab) 650 mg Q6H PRN PO MILD PAIN(1-3)OR ELEVATED TEMP; Start 06/29/18 at 22:00 Atorvastatin Calcium (Lipitor) 40 mg QHS PO Last administered on 07/01/18 22:02; Admin Dose 40 MG; Start 06/30/18 at 21:00 Benazepril HCl (Lotensin) 10 mg DAILY PO Last administered on 07/01/18 08:54; Admin Dose 10 MG; Start 06/30/18 at 09:00 Docusate Sodium (Colace) 100 mg BID PO Last administered on 07/01/18 22:03; Admin Dose 100 MG; Start 06/30/18 at 09:00 Doxazosin Mesylate (Cardura) 8 mg HS PO Last administered on 07/01/18 21:00; Admin Dose 8 MG; Start 06/30/18 at 21:00 Ibuprofen (Motrin) 600 mg Q6H PRN PO MILD PAIN(1-3)OR ELEVATED TEMP; Start 06/29/18 at 22:00 Lidocaine (Lidoderm) 5 patch DAILY PRN TD PAIN; Start 06/29/18 at 22:00 Spironolactone (Aldactone) 25 mg DAILY PO Last administered on 07/01/18 08:53; Admin Dose 25 MG; Start 06/30/18 at 09:00 Linagliptin (Tradjenta) 5 mg DAILY PO Last administered on 07/01/18 08:54; Admin Dose 5 MG; Start 06/30/18 at 09:00 Ondansetron HCl (Zofran Inj) 4 mg Q6H PRN IV NAUSEA AND/OR VOMITING; Start 06/29/18 at 22:30 Ceftriaxone Sodium 50 ml @ 100 mls/hr Q24H IVPB Last administered on 07/01/18 22:16; Admin Dose 100 MLS/HR; Start 06/29/18 at 22:30 Diagnostic Test (Pha) (Accu-Chek) 1 ea 02 XX Last administered on 07/01/18 02:18; Admin Dose 1 EA; Start 06/30/18 at 02:00 Methylprednisolone Sodium Succinate (Solu-Medrol) 40 mg BID IV Last administered on 2/18/19at 21:04; Admin Dose 40 MG; Start 06/30/18 at 09:00 Insulin Human NPH (Humulin N) 10 unit BID SC Last administered on 07/01/18at 22:00; Admin Dose 10 UNIT; Start 06/30/18 at 09:00 Pantoprazole (Protonix Tab) 40 mg DAILY@06 PO Last administered on 07/02/18at 06:13; Admin Dose 40 MG; Start 06/30/18 at 06:00 Nitroglycerin (Nitroglycerin (Sl Tab) 0.4 Mg) 1 tab Q5M PRN SL ANGINA; Start 06/29/18 at 22:30 Heparin Sodium (Porcine) (Heparin (1000 Units/ml)) 4,000 unit PER PROTOCOL PRN IV aPTT<47; Start 06/29/18 at 22:30 Albuterol/ Ipratropium (Duoneb) 3 ml Q6H RESP THERAPY HHN Last administered on 07/01/18at 07:53; Admin Dose 3 ML; Start 06/30/18 at 02:00 Miscellaneous Information 1 ea NOTE XX ; Start 06/29/18 at 23:00 Glucose (Glutose) 15 gm Q15M PRN PO DECREASED GLUCOSE; Start 06/29/18 at 23:00 Glucose (Glutose) 22.5 gm Q15M PRN PO DECREASED GLUCOSE; Start 06/29/18 at 23:00 Dextrose (D50w Syringe) 25 ml Q15M PRN IV DECREASED GLUCOSE; Start 06/29/18 at 23:00 Dextrose (D50w Syringe) 50 ml Q15M PRN IV DECREASED GLUCOSE; Start 06/29/18 at 23:00 Glucagon (Glucagen) 1 mg Q15M PRN IM DECREASED GLUCOSE; Start 06/29/18 at 23:00 Glucose (Glutose) 15 gm Q15M PRN BUCCAL DECREASED GLUCOSE; Start 06/29/18 at 23:00 Guaifenesin/ Dextromethorphan (Robitussin Dm Liquid Cup) 10 ml Q4H PRN PO COUGH; Start 06/30/18 at 11:00 Aspirin (Aspirin) 81 mg DAILY PO Last administered on 07/01/18at 08:40; Admin Dose 81 MG; Start 07/01/18 at 09:00 Furosemide (Lasix) 40 mg BID DIURETICS IV Last administered on 07/02/18at 06:13; Admin Dose 40 MG; Start 06/30/18 at 18:00 Digoxin (Digoxin) 0.125 mg DAILY@13 PO Last administered on 06/30/18at 15:13; Admin Dose 0.125 MG; Start 06/30/18 at 14:30 Carvedilol (Coreg) 3.125 mg BID PO Last administered on 07/01/18at 08:53; Admin Dose 3.125 MG; Start 06/30/18 at 21:00 Prasugrel (Effient) 10 mg DAILY PO ; Start 07/02/18 at 09:00 Diagnostic Test (Pha) (Accu-Chek) 1 ea 02 XX ; Start 07/02/18 at 02:00 Insulin Aspart (Novolog Insulin Pen) 9 unit WITH MEALS SC ; Start 07/02/18 at 07:35 Insulin Aspart (Novolog Insulin Pen) NOVOLOG *MILD* ALGORITHM WITH MEALS BEDTIME SC ; Start 07/02/18 at 07:35 Insulin Glargine (Lantus) 27 units DAILY@2000 SC ; Start 07/02/18 at 20:00 Assessment/Plan Hospital Course (Demo Recall) 1. 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 Status post PCI of his PDA 2. Congestive heart failure: Acute due to systolic heart failure 3. Severe ischemic cardiomyopathy 4. Diabetes 5. Hypertension 6. Dyslipidemia 7. Anemia Recommendations: We will change the Lasix to p.o. Lasix. Chest x-ray will be checked Continue Lasix Lasix to 40 mg IV twice daily and will adjust as needed Aldactone We will stop digoxin due to bradycardia Continue with carvedilol Antibiotic management as per internal medicine Continue with MYAH inhibitor and increase as tolerated I have explained to the patient multiple times regarding his cardiac issues as well as [place] and PCI and urgency of compliant with his medication including and especially aspirin and Effient. Patient tells me that he understands. However he appears to not have a good insight of what is going on his cardiac situations. I am also concerned about his family situation seems he does not appear to have any supporting family around him. Consider manager social work in obtain the medication as well as reinforcement of the compliance. Patient can be transferred to telemetry Thank you for this referral. We will continue to follow along with you JA CHACON MD [facility] JA CHACON MD Jul 02, 2018 08:52
[2018-07-02] MEDS: METHYLPREDNISOLONE 40 MG INJ IV SCH ×2 (10:03→21:07)
[2018-07-02] MEDS: LINAGLIPTIN 5 MG TABLET PO SCH (10:04)
[2018-07-02] MEDS: ASPIRIN 81 MG TAB PO SCH (10:04)
[2018-07-02] MEDS: PRASUGREL HYDROCHLORIDE 10 MG TABLET PO SCH (10:04)
[2018-07-02] MEDS: DOCUSATE SODIUM 100 MG CAP PO SCH ×2 (10:04→21:07)
[2018-07-02] MEDS: SPIRONOLACTONE 25 MG TAB PO SCH (10:04)
[2018-07-02] MEDS ORDERED: BENAZEPRIL 10 MG TAB PO SCH (10:20)
[2018-07-02] MEDS: DIGOXIN 0.125 MG TAB PO SCH (12:39)
[2018-07-02] MEDS: INSULIN GLARGINE [LANTus] (100 UNITS/ML) SYG SC SCH (20:00)
[2018-07-02] MEDS: DOXAZOSIN 4 MG TAB PO SCH (21:06)
[2018-07-02] MEDS: ATORVASTATIN 40 MG TAB PO SCH (21:07)
[2018-07-02] MEDS: GUAIFENESIN/DM 5ML CUP PO PRN (22:02)
[2018-07-02] MEDS: CEFTRIAXONE 1 GM/50 ML (PMX) 50 ML IVPB SCH (22:02)
[2018-07-03] VITALS (13 sets, daily range): BP systolic 94–139; BP diastolic 51–73; PULSE 42–79; RESP 16–19
[2018-07-03] MEDS: ACCU-CHEK XX SCH (02:00)
[2018-07-03] MEDS: ALBUTEROL/IPRATROPIUM (NEB) 3 ML AMP HHN SCH ×4 (02:18→19:59)
[2018-07-03] MEDS: FUROSEMIDE 40 MG INJ IV SCH (05:58)
[2018-07-03] MEDS: PANTOPRAZOLE (EC) 40 MG TAB PO SCH (05:58)
--- NOTE | 2018-07-03 08:16 | CONS ---
Consult Date/Type/Reason Admit Date/Time Jun 29, 2018 at 19:13 Initial Consult Date 06/30/18 Type of Consultation: cv Requesting Provider: MOSHE YOUNG Date/Time of Note DATE: 07/03/18 TIME: 08:12 Subjective Interventional cardiology follow-up progress note Subjective: Case discussed with the staff and telemetry was reviewed. Patient remains in normal sinus rhythm. Discussed with staff and RN Patient denies any left-sided chest pain or pressure to me Patient shortness of breath has resolved but he still complaining of cough Denies any bleeding to me No groin pain no bleeding he wants to go home Status post PCI of the PDA 07/01/2018 Objective: General: Obese gentleman in respiratory distress HEENT: NC/AT. pupils are equal. round. NECK: NO JVD. no stridor. CV: RRR. systolic murmur; no gallop or rubs. PULM: no wheezing normal rhonchi. GI: SOFT, NT, ND, no rebound or guarding Extremity:trace B/L LE edema. no clubbing. neuro: awake and alert, OX3. Psych: calm and pleasant rectal: deferred : normal EKG was personally reviewed showed normal sinus rhythm anteroseptal infarct age undetermined. Marked ST-T wave abnormality. LVH Chest x-ray was personally reviewed which is consistent with congestive heart failure Echocardiogram was personally reviewed which shows: Normal left ventricular cavity size. Mild concentric left ventricular hypertrophy. Moderate global left ventricular systolic dysfunction. Ejection fraction is visually estimated at 30 %. Tissue Doppler/Mitral Doppler indices are consistent with restrictive physiology with markedly elevated left atrial pressure (Stage III-IV diastolic dysfunction). These segments of the LV are hypokinetic mid anterior segment, apical anterior segment, apical lateral segment, inferior apex segment, inferoseptum mid segment, apex and apical septum. There is moderate enlargement of left atrium. Mitral valve leaflets appear mildly thickened. Mild mitral annular calcification. Mild mitral valve regurgitation. Aortic cusps appear mildly calcified. Trace to mild aortic valve regurgitation. Normal appearance of the tricuspid valve. Estimated peak PA systolic pressure 60 mmHg. There is mild to moderate tricuspid regurgitation. Normal pericardium with no significant pericardial effusion. Right pleural effusion seen. Objective Vitals Vital Signs Date Temp Pulse Resp B/P (MAP) Pulse Ox O2 O2 Flow FiO2 Time Delivery Rate 07/03/18 70 16 94 21 08:09 07/03/18 98.6 94/51 (65) 07:23 07/02/18 Room Air 13:00 07/01/18 2.0 20:00 Intake and Output 07/02/18 07/02/18 07/03/18 1515:00 23:00 07:00 IntakeIntake Total 300 ml 750 ml 500 ml OutputOutput Total 800 ml 450 ml 850 ml BalanceBalance -500 ml 300 ml -350 ml Results/Medications Result Diagram: 07/03/18 0516 07/02/18 0440 Results 24 hrs Laboratory Tests Test 07/02/18 08:43 07/02/18 12:27 07/02/18 17:12 07/02/18 18:38 Bedside Glucose 432 *H 219 422 *H 196 Test 07/02/18 21:04 07/03/18 05:16 Bedside Glucose 135 White Blood Count 9.4 Red Blood Count 4.42 L Hemoglobin 13.0 L Hematocrit 37.7 L Mean Corpuscular 85.3 Volume Mean Corpuscular 29.4 Hemoglobin Mean Corpuscular 34.5 Hemoglobin Concent Red Cell 12.7 Distribution Width Platelet Count 245 Mean Platelet Volume 10.9 H Immature 0.900 H Granulocytes % Neutrophils % 79.4 H Lymphocytes % 12.4 L Monocytes % 7.2 Eosinophils % 0.0 Basophils % 0.1 Nucleated Red Blood 0.0 Cells % Immature 0.080 H Granulocytes # Neutrophils # 7.5 Lymphocytes # 1.2 Monocytes # 0.7 Eosinophils # 0.0 Basophils # 0.0 Nucleated Red Blood 0.0 Cells # Magnesium Level 1.8 Creatine Kinase 58 Creatine Kinase 2.2 Index Creatinine Kinase MB 1.25 (Mass) Troponin I 0.620 *H B-Type Natriuretic 3760 H Peptide Home Meds Active Scripts Lidocaine (Lidoderm) 1 Each Adh..patch, 1 EACH TP DAILY for 7 Days Prov:ERIK CAPUTO PA-C 09/15/17 Ibuprofen* (Motrin*) 600 Mg Tab, 600 MG PO Q6H PRN for PAIN AND OR ELEVATED TEMP, #30 TAB Prov:ERIK CAPUTO-Nino 09/15/17 Docusate Sodium* (Colace*) 100 Mg Capsule, 100 MG PO BID, #30 CAP Prov:SANJUANA CARTAGENA MD 07/13/17 Acetaminophen* (Tylophen*) 500 Mg Capsule, 1 CAP PO Q6H PRN for PAIN AND OR ELEVATED TEMP, #20 CAP Prov:SANJUANA CARTAGENA MD 07/13/17 Sennosides* (Senna Lax*) 8.6 Mg Tablet, 1 TAB PO BID PRN for CONSTIPATION, #14 TAB Prov:KALYANI MIX DO 04/04/16 Spironolactone* (Aldactone*) 25 Mg Tab, 25 MG PO DAILY for 30 Days, TAB Prov:SRAVANTHI GUADALUPE 09/20/15 Ondansetron Hcl* (Zofran* ODT) 4 mg -ODT Tab.disper, 4 MG PO Q6 PRN for NAUSEA AND/OR VOMITING, #10 TAB Prov:GREGG ZAMORA NP 09/07/15 Reported Medications Doxazosin Mesylate* (Doxazosin Mesylate*) 8 Mg Tablet, 8 MG PO HS, TAB 09/10/15 Sitagliptin* (Januvia*) 100 Mg Tablet, 100 MG PO DAILY, #30 TAB 09/10/15 Metformin* (Glucophage*) 1,000 Mg Tablet, 1000 MG PO BID, #60 TAB 09/10/15 Atorvastatin* (Atorvastatin*) 40 Mg Tablet, 40 MG PO QHS, #30 TAB 09/10/15 Benazepril Hcl* (Benazepril Hcl*) 40 Mg Tablet, 40 MG PO DAILY, TAB 06/20/14 Discontinued Scripts Acetaminophen (TYLENOL 325 MG TAB) 325 Mg Tab, 650 MG PO Q6H PRN for PAIN LEVEL 1-3 OR FEVER, #1 TAB Prov:ANGEL DEUTSCH MD 06/24/14 Medications Current Medications Acetaminophen (Tylenol Tab) 650 mg Q6H PRN PO MILD PAIN(1-3)OR ELEVATED TEMP; Start 06/29/18 at 22:00 Atorvastatin Calcium (Lipitor) 40 mg QHS PO Last administered on 07/02/18at 21:07; Admin Dose 40 MG; Start 06/30/18 at 21:00 Docusate Sodium (Colace) 100 mg BID PO Last administered on 07/02/18at 21:07; Admin Dose 100 MG; Start 06/30/18 at 09:00 Doxazosin Mesylate (Cardura) 8 mg HS PO Last administered on 07/02/18at 21:06; Admin Dose 8 MG; Start 06/30/18 at 21:00 Ibuprofen (Motrin) 600 mg Q6H PRN PO MILD PAIN(1-3)OR ELEVATED TEMP; Start 06/29/18 at 22:00 Lidocaine (Lidoderm) 5 patch DAILY PRN TD PAIN; Start 06/29/18 at 22:00 Spironolactone (Aldactone) 25 mg DAILY PO Last administered on 07/02/18at 10:04; Admin Dose 25 MG; Start 06/30/18 at 09:00 Linagliptin (Tradjenta) 5 mg DAILY PO Last administered on 07/02/18at 10:04; Admin Dose 5 MG; Start 06/30/18 at 09:00 Ondansetron HCl (Zofran Inj) 4 mg Q6H PRN IV NAUSEA AND/OR VOMITING; Start 06/29/18 at 22:30 Ceftriaxone Sodium 50 ml @ 100 mls/hr Q24H IVPB Last administered on 07/02/18at 22:02; Admin Dose 100 MLS/HR; Start 06/29/18 at 22:30; Stop 07/03/18 at 23:30 Insulin Human NPH (Humulin N) 10 unit BID SC Last administered on 07/02/18at 21:24; Admin Dose 10 UNIT; Start 06/30/18 at 09:00 Pantoprazole (Protonix Tab) 40 mg DAILY@06 PO Last administered on 07/03/18at 05:58; Admin Dose 40 MG; Start 06/30/18 at 06:00 Nitroglycerin (Nitroglycerin (Sl Tab) 0.4 Mg) 1 tab Q5M PRN SL ANGINA; Start 06/29/18 at 22:30 Albuterol/ Ipratropium (Duoneb) 3 ml Q6H RESP THERAPY HHN Last administered on 07/03/18at 08:09; Admin Dose 3 ML; Start 06/30/18 at 02:00 Miscellaneous Information 1 ea NOTE XX ; Start 06/29/18 at 23:00 Glucose (Glutose) 15 gm Q15M PRN PO DECREASED GLUCOSE; Start 06/29/18 at 23:00 Glucose (Glutose) 22.5 gm Q15M PRN PO DECREASED GLUCOSE; Start 06/29/18 at 23:00 Dextrose (D50w Syringe) 25 ml Q15M PRN IV DECREASED GLUCOSE; Start 06/29/18 at 23:00 Dextrose (D50w Syringe) 50 ml Q15M PRN IV DECREASED GLUCOSE; Start 06/29/18 at 23:00 Glucagon (Glucagen) 1 mg Q15M PRN IM DECREASED GLUCOSE; Start 06/29/18 at 23:00 Glucose (Glutose) 15 gm Q15M PRN BUCCAL DECREASED GLUCOSE; Start 06/29/18 at 23:00 Guaifenesin/ Dextromethorphan (Robitussin Dm Liquid Cup) 10 ml Q4H PRN PO COUGH Last administered on 07/02/18 22:02; Admin Dose 10 ML; Start 06/30/18 at 11:00 Aspirin (Aspirin) 81 mg DAILY PO Last administered on 07/02/18 10:04; Admin Dose 81 MG; Start 07/01/18 at 09:00 Furosemide (Lasix) 40 mg BID DIURETICS IV Last administered on 07/03/18 05:58; Admin Dose 40 MG; Start 06/30/18 at 18:00 Digoxin (Digoxin) 0.125 mg DAILY@13 PO Last administered on 07/02/18at 12:39; Admin Dose 0.125 MG; Start 06/30/18 at 14:30 Carvedilol (Coreg) 3.125 mg BID PO Last administered on 07/02/18at 21:07; Admin Dose 3.125 MG; Start 06/30/18 at 21:00 Prasugrel (Effient) 10 mg DAILY PO Last administered on 07/02/18at 10:04; Admin Dose 10 MG; Start 07/02/18 at 09:00 Diagnostic Test (Pha) (Accu-Chek) 1 ea 02 XX ; Start 07/02/18 at 02:00 Insulin Aspart (Novolog Insulin Pen) 9 unit WITH MEALS SC Last administered on 07/02/18 17:24; Admin Dose 9 UNIT; Start 07/02/18 at 07:35 Insulin Aspart (Novolog Insulin Pen) NOVOLOG *MILD* ALGORITHM WITH MEALS BEDTIME SC Last administered on 07/02/18at 17:24; Admin Dose 7 UNIT; Start 07/02/18 at 07:35 Insulin Glargine (Lantus) 27 units DAILY@2000 SC Last administered on 2/19/19at 20:00; Admin Dose 27 UNITS; Start 07/02/18 at 20:00 Benazepril HCl (Lotensin) 10 mg DAILY PO Last administered on 07/02/18at 10:16; Admin Dose 10 MG; Start 07/02/18 at 10:20 Methylprednisolone Sodium Succinate (Solu-Medrol) 20 mg BID IV Last administered on 07/02/18at 21:07; Admin Dose 20 MG; Start 07/02/18 at 21:00 Magnesium Sulfate 50 ml @ 25 mls/hr ONCE ONCE IVPB ; Start 07/03/18 at 08:30; Stop 07/03/18 at 10:29 Assessment/Plan Hospital Course (Demo Recall) 1. 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 Status post PCI of his PDA 2. Congestive heart failure: Acute due to systolic heart failure 3. Severe ischemic cardiomyopathy 4. Diabetes 5. Hypertension 6. Dyslipidemia 7. Anemia Recommendations: We cont po Lasix . Chest x-ray will be checked Aldactone We will stop digoxin due to bradycardia Continue with carvedilol Antibiotic management as per internal medicine Continue change benazepril to losartan due to cough I have explained to the patient multiple times regarding his cardiac issues as well as IN and PCI and urgency of compliant with his medication including and especially aspirin and Effient. Patient tells me that he understands. However he appears to not have a good insight of what is going on his cardiac situations. I am also concerned about his family situation seems he does not appear to have any supporting family around him. Consider professor of social work in obtain the medication as well as reinforcement of the compliance. I have left a prescription for aspirin and Effient in the chart, and ask nursing staff and supervisor case loading to have the prescription filled and have it available to the patient prior to discharge Thank you for this referral. We will continue to follow along with you JA CHACON MD [facility] JA CHACON MD Jul 03, 2018 08:16
[2018-07-03] MEDS: NPH, HUMAN INSULIN ISOPHANE 3ML VIAL SC SCH ×2 (08:24→20:43)
[2018-07-03] MEDS: INSULIN ASPART [NOVOLOG] 3 ML PEN SC SCH ×7 (08:25→20:43)
[2018-07-03] MEDS ORDERED: MAGNESIUM SULFATE 2 GM/50 ML 50 ML IVPB ONE (08:30)
[2018-07-03] MEDS: METHYLPREDNISOLONE 40 MG INJ IV SCH ×2 (08:38→20:31)
[2018-07-03] MEDS: LINAGLIPTIN 5 MG TABLET PO SCH (08:39)
[2018-07-03] MEDS: FUROSEMIDE 40 MG TAB PO SCH ×2 (08:40→17:20)
[2018-07-03] MEDS: LOSARTAN 25 MG TAB PO SCH (08:40)
[2018-07-03] MEDS: DOCUSATE SODIUM 100 MG CAP PO SCH ×2 (08:40→20:29)
[2018-07-03] MEDS: ASPIRIN 81 MG TAB PO SCH (08:41)
[2018-07-03] MEDS: SPIRONOLACTONE 25 MG TAB PO SCH (08:41)
[2018-07-03] MEDS: PRASUGREL HYDROCHLORIDE 10 MG TABLET PO SCH (10:17)
--- NOTE | 2018-07-03 12:58 | PN ---
Date/Time of Note Date/Time of Note DATE: 07/03/18 TIME: 12:55 Assessment/Plan VTE Prophylaxis Risk score (from Ns)>0 risk: 4 SCD applied (from Ns): Yes Pharmacological prophylaxis: other Lines/Catheters IV [facility]from [facility] Urinary Cath still in place: No Assessment/Plan Hospital Course Patient denies any chest pain denies shortness of breath, continue telemetry monitoring. Assessment/Plan -Non-ST elevation myocardial infarction. Multivessel coronary artery disease including chronic total occlusion of his ostial left anterior descending artery. Status post PCI of his PDA. Dr. Herman is following in cardiology consultation. -Acute systolic congestive heart failure -Severe ischemic cardiomyopathy -Poorly controlled diabetes mellitus type 2 with hemoglobin A1c of 11. Continue Lantus and pre-meal NovoLog. -Hypertension -Dyslipidemia -Anemia Further recommendations based on clinical course. Plan of care discussed with Dr. Lawson Result Diagram: 07/03/18 0516 07/03/18 0516 Results 24hrs Laboratory Tests Test 07/02/18 17:12 07/02/18 18:38 07/02/18 21:04 07/03/18 05:16 Bedside Glucose 422 *H 196 135 White Blood Count 9.4 Red Blood Count 4.42 L Hemoglobin 13.0 L Hematocrit 37.7 L Mean Corpuscular 85.3 Volume Mean Corpuscular 29.4 Hemoglobin Mean Corpuscular 34.5 Hemoglobin Concent Red Cell 12.7 Distribution Width Platelet Count 245 Mean Platelet Volume 10.9 H Immature 0.900 H Granulocytes % Neutrophils % 79.4 H Lymphocytes % 12.4 L Monocytes % 7.2 Eosinophils % 0.0 Basophils % 0.1 Nucleated Red Blood 0.0 Cells % Immature 0.080 H Granulocytes # Neutrophils # 7.5 Lymphocytes # 1.2 Monocytes # 0.7 Eosinophils # 0.0 Basophils # 0.0 Nucleated Red Blood 0.0 Cells # Sodium Level 136 Potassium Level 3.8 Chloride Level 91 L Carbon Dioxide Level 29 Anion Gap 16 H Blood Urea Nitrogen 39 #H Creatinine 0.96 Est Glomerular Filtrat Rate mL/min Glucose Level 189 # Calcium Level 9.2 Magnesium Level 1.8 Total Bilirubin 0.3 Direct Bilirubin 0.00 Indirect Bilirubin 0.3 Aspartate Amino 58 #H Transf (AST/SGOT) Alanine 52 Aminotransferase (AL T/SGPT) Alkaline Phosphatase 92 Creatine Kinase 58 Creatine Kinase 2.2 Index Creatinine Kinase MB 1.25 (Mass) Troponin I 0.620 *H B-Type Natriuretic 3760 H Peptide Total Protein 7.2 Albumin 3.8 Globulin 3.40 H Albumin/Globulin 1.11 Ratio Test 07/03/18 08:19 07/03/18 11:53 Bedside Glucose 271 H 364 H Exam/Review of Systems Exam Vitals Vital Signs Date Temp Pulse Resp B/P (MAP) Pulse Ox O2 O2 Flow FiO2 Time Delivery Rate 07/03/18 79 12:06 07/03/18 98.3 18 126/64 95 11:32 (84) 07/03/18 21 08:09 07/02/18 Room Air 13:00 07/01/18 2.0 20:00 Intake and Output 07/02/18 07/02/18 07/03/18 1515:00 23:00 07:00 IntakeIntake Total 300 ml 750 ml 500 ml OutputOutput Total 800 ml 450 ml 850 ml BalanceBalance -500 ml 300 ml -350 ml Constitutional: alert, oriented Head: normocephalic Neck: supple Respiratory: clear to auscultation Cardiovascular: regular rate and rhythm Gastrointestinal: soft, non-tender Musculoskeletal: nl extremities to inspection Extremities: normal pulses Neurological: nl mental status Results Results 24hrs Laboratory Tests Test 07/02/18 17:12 07/02/18 18:38 07/02/18 21:04 07/03/18 05:16 Bedside Glucose 422 *H 196 135 White Blood Count 9.4 Red Blood Count 4.42 L Hemoglobin 13.0 L Hematocrit 37.7 L Mean Corpuscular 85.3 Volume Mean Corpuscular 29.4 Hemoglobin Mean Corpuscular 34.5 Hemoglobin Concent Red Cell 12.7 Distribution Width Platelet Count 245 Mean Platelet Volume 10.9 H Immature 0.900 H Granulocytes % Neutrophils % 79.4 H Lymphocytes % 12.4 L Monocytes % 7.2 Eosinophils % 0.0 Basophils % 0.1 Nucleated Red Blood 0.0 Cells % Immature 0.080 H Granulocytes # Neutrophils # 7.5 Lymphocytes # 1.2 Monocytes # 0.7 Eosinophils # 0.0 Basophils # 0.0 Nucleated Red Blood 0.0 Cells # Sodium Level 136 Potassium Level 3.8 Chloride Level 91 L Carbon Dioxide Level 29 Anion Gap 16 H Blood Urea Nitrogen 39 #H Creatinine 0.96 Est Glomerular Filtrat Rate mL/min Glucose Level 189 # Calcium Level 9.2 Magnesium Level 1.8 Total Bilirubin 0.3 Direct Bilirubin 0.00 Indirect Bilirubin 0.3 Aspartate Amino 58 #H Transf (AST/SGOT) Alanine 52 Aminotransferase (AL T/SGPT) Alkaline Phosphatase 92 Creatine Kinase 58 Creatine Kinase 2.2 Index Creatinine Kinase MB 1.25 (Mass) Troponin I 0.620 *H B-Type Natriuretic 3760 H Peptide Total Protein 7.2 Albumin 3.8 Globulin 3.40 H Albumin/Globulin 1.11 Ratio Test 07/03/18 08:19 07/03/18 11:53 Bedside Glucose 271 H 364 H Medications Medication Current Medications Acetaminophen (Tylenol Tab) 650 mg Q6H PRN PO MILD PAIN(1-3)OR ELEVATED TEMP; Start 06/29/18 at 22:00 Atorvastatin Calcium (Lipitor) 40 mg QHS PO Last administered on 07/02/18at 21:07; Admin Dose 40 MG; Start 06/30/18 at 21:00 Docusate Sodium (Colace) 100 mg BID PO Last administered on 07/03/18at 08:40; Admin Dose 100 MG; Start 06/30/18 at 09:00 Doxazosin Mesylate (Cardura) 8 mg HS PO Last administered on 07/02/18at 21:06; Admin Dose 8 MG; Start 06/30/18 at 21:00 Ibuprofen (Motrin) 600 mg Q6H PRN PO MILD PAIN(1-3)OR ELEVATED TEMP; Start 06/29/18 at 22:00 Lidocaine (Lidoderm) 5 patch DAILY PRN TD PAIN; Start 06/29/18 at 22:00 Spironolactone (Aldactone) 25 mg DAILY PO Last administered on 07/03/18at 08:41; Admin Dose 25 MG; Start 06/30/18 at 09:00 Linagliptin (Tradjenta) 5 mg DAILY PO Last administered on 07/03/18at 08:39; Admin Dose 5 MG; Start 06/30/18 at 09:00 Ondansetron HCl (Zofran Inj) 4 mg Q6H PRN IV NAUSEA AND/OR VOMITING; Start 06/29/18 at 22:30 Ceftriaxone Sodium 50 ml @ 100 mls/hr Q24H IVPB Last administered on 07/02/18 22:02; Admin Dose 100 MLS/HR; Start 06/29/18 at 22:30; Stop 07/03/18 at 23:30 Insulin Human NPH (Humulin N) 10 unit BID SC Last administered on 07/03/18 08:24; Admin Dose 10 UNIT; Start 06/30/18 at 09:00 Pantoprazole (Protonix Tab) 40 mg DAILY@06 PO Last administered on 07/03/18at 05:58; Admin Dose 40 MG; Start 06/30/18 at 06:00 Nitroglycerin (Nitroglycerin (Sl Tab) 0.4 Mg) 1 tab Q5M PRN SL ANGINA; Start 06/29/18 at 22:30 Albuterol/ Ipratropium (Duoneb) 3 ml Q6H RESP THERAPY HHN Last administered on 07/03/18 08:09; Admin Dose 3 ML; Start 06/30/18 at 02:00 Miscellaneous Information 1 ea NOTE XX ; Start 06/29/18 at 23:00 Glucose (Glutose) 15 gm Q15M PRN PO DECREASED GLUCOSE; Start 06/29/18 at 23:00 Glucose (Glutose) 22.5 gm Q15M PRN PO DECREASED GLUCOSE; Start 06/29/18 at 23 :00 Dextrose (D50w Syringe) 25 ml Q15M PRN IV DECREASED GLUCOSE; Start 06/29/18 at 23:00 Dextrose (D50w Syringe) 50 ml Q15M PRN IV DECREASED GLUCOSE; Start 06/29/18 at 23:00 Glucagon (Glucagen) 1 mg Q15M PRN IM DECREASED GLUCOSE; Start 06/29/18 at 23:00 Glucose (Glutose) 15 gm Q15M PRN BUCCAL DECREASED GLUCOSE; Start 06/29/18 at 23:00 Guaifenesin/ Dextromethorphan (Robitussin Dm Liquid Cup) 10 ml Q4H PRN PO COUGH Last administered on 07/02/18 22:02; Admin Dose 10 ML; Start 06/30/18 at 11:00 Aspirin (Aspirin) 81 mg DAILY PO Last administered on 07/03/18 08:41; Admin Dose 81 MG; Start 07/01/18 at 09:00 Carvedilol (Coreg) 3.125 mg BID PO Last administered on 07/03/18 08:41; Admin Dose 3.125 MG; Start 06/30/18 at 21:00 Prasugrel (Effient) 10 mg DAILY PO Last administered on 07/03/18 10:17; Admin Dose 10 MG; Start 07/02/18 at 09:00 Diagnostic Test (Pha) (Accu-Chek) 1 ea 02 XX ; Start 07/02/18 at 02:00 Insulin Aspart (Novolog Insulin Pen) 9 unit WITH MEALS SC Last administered on 07/03/18 12:00; Admin Dose 9 UNIT; Start 07/02/18 at 07:35 Insulin Aspart (Novolog Insulin Pen) NOVOLOG *MILD* ALGORITHM WITH MEALS BEDTIME SC Last administered on 07/03/18 12:00; Admin Dose 7 UNIT; Start 07/02/18 at 07:35 Insulin Glargine (Lantus) 27 units DAILY@2000 SC Last administered on 07/02/18 20:00; Admin Dose 27 UNITS; Start 07/02/18 at 20:00 Methylprednisolone Sodium Succinate (Solu-Medrol) 20 mg BID IV Last administered on 07/03/18 08:38; Admin Dose 20 MG; Start 07/02/18 at 21:00 Losartan Potassium (Cozaar) 25 mg DAILY PO Last administered on 07/03/18 08:40; Admin Dose 25 MG; Start 07/03/18 at 09:00 Furosemide (Lasix) 40 mg BID DIURETICS PO Last administered on 07/03/18 08:40; Admin Dose 40 MG; Start 07/03/18 at 08:30 SRAVANTHI GUADALUPE Jul 03, 2018 12:58
[2018-07-03] MEDS: ATORVASTATIN 40 MG TAB PO SCH (20:29)
[2018-07-03] MEDS: DOXAZOSIN 4 MG TAB PO SCH (20:30)
[2018-07-03] MEDS: CEFTRIAXONE 1 GM/50 ML (PMX) 50 ML IVPB SCH (20:35)
[2018-07-03] MEDS: INSULIN GLARGINE [LANTus] (100 UNITS/ML) SYG SC SCH (20:43)
[2018-07-04] VITALS (12 sets, daily range): BP systolic 117–150; BP diastolic 60–69; PULSE 54–79; RESP 16–19
--- NOTE | 2018-07-04 01:19 | PN ---
DATE: 07/02/2018 SUBJECTIVE: Follow up non-ST elevation myocardial infarction, status post LOOM STARTER, acute systolic heart failure, severe ischemic cardiomyopathy, diabetes, hypertension, dyslipidemia. The patient remained chest pain free, no reported fever or chills. No reported nausea, vomiting. No reported abdominal p ain, no reported bleeding from any site. The patient's cough and chest congestion has improved. The re is no orthopnea. There is no resting leg pain. PHYSICAL EXAMINATION: GENERAL: The patient is awake, alert. VITAL SIGNS: Temperature 97.8, pulse 70, respiration 20, blood pressure 139/72, O2 saturation 96% on room air. HEENT: Atraumatic, normocephalic. Conjunctivae normal. Oropharynx clear. NECK: Supple. No thyromegaly. CHEST: Diminished rhonchi. CARDIOVASCULAR: S1, S2 normal, no murmur. ABDOMEN: Soft, nondistended, nontender. Bowel sounds present. EXTREMITIES: Trace edema. No clubbing, cyanosis. NEUROLOGIC: The patient is awake, alert, oriented with no gross focal deficit. SKIN: Without acute rash or ecchymosis. LABORATORY DATA: Done on 07/02/2018. WBC 8.7, hemoglobin 12.2, platelet 218. Chemistry: Sodium 13 7, potassium 4.1, BUN 27, creatinine 0.8, glucose 256. Liver enzymes normal. Troponin trending down , now down to 0.62 from 0.96 on 07/01/2018. Chest x-ray done on 07/02/2018 revealed unchanged inters titial pulmonary edema. IMPRESSION: 1. Coronary artery disease, status post non-ST myocardial infarction status post cardiac catheteriza tion with LOOM STARTER of . Continue aspirin, Effient and carvedilol. 2. Ischemic cardiomyopathy. Continue IV Lasix 40 b.i.d. along with carvedilol, Aldactone and benaze pril as tolerated. 3. Acute bronchitis. Continue ceftriaxone, but patient is not actually wheezing and patient's short ness breath is better. We will decrease dose of Solu-Medrol to 20 b.i.d. 4. Uncontrolled diabetes. We will continue NPH with Solu-Medrol, but will keep the same dose that micha dunlap help in improving glycemic control. Meanwhile, continue NovoLog before meals as well as Lantus along with the Tradjenta. 5. Benign prostatic hypertrophy, stable urinary symptoms with Cardura. Further recommendation will depend upon patient's hospital course. We will move the patient out of I CU today to tele bed. Dictated By: YAEL PABON/RILEY Conf#: [id number] DID#: [id number]
[2018-07-04] MEDS: ALBUTEROL/IPRATROPIUM (NEB) 3 ML AMP HHN SCH ×4 (01:43→20:44)
[2018-07-04] MEDS: ACCU-CHEK XX SCH (02:01)
[2018-07-04] MEDS: FUROSEMIDE 40 MG TAB PO SCH ×2 (06:11→17:17)
[2018-07-04] MEDS: PANTOPRAZOLE (EC) 40 MG TAB PO SCH (06:11)
[2018-07-04] MEDS: INSULIN ASPART [NOVOLOG] 3 ML PEN SC SCH ×7 (08:11→21:11)
[2018-07-04] MEDS: NPH, HUMAN INSULIN ISOPHANE 3ML VIAL SC SCH ×2 (08:11→21:12)
--- NOTE | 2018-07-04 08:45 | CONS ---
Consult Date/Type/Reason Admit Date/Time Jun 29, 2018 at 19:13 Initial Consult Date 06/30/18 Type of Consultation: cv Requesting Provider: MOSHE YOUNG Date/Time of Note DATE: 07/04/18 TIME: 08:43 Subjective Interventional cardiology follow-up progress note Subjective: Case discussed with the staff and telemetry was reviewed. Patient remains in normal sinus rhythm. Discussed with staff and RN Patient denies any left-sided chest pain or pressure to me wants to go home today Patient shortness of breath has resolved but he still complaining of cough Denies any bleeding to me No groin pain no bleeding Status post PCI of the PDA 07/01/2018 Objective: General: Obese gentleman in respiratory distress HEENT: NC/AT. pupils are equal. round. NECK: NO JVD. no stridor. CV: RRR. systolic murmur; no gallop or rubs. PULM: no wheezing no rhonchi. GI: SOFT, NT, ND, no rebound or guarding Extremity:trace B/L LE edema. no clubbing. neuro: awake and alert, OX3. Psych: calm and pleasant rectal: deferred : normal EKG was personally reviewed showed normal sinus rhythm anteroseptal infarct age undetermined. Marked ST-T wave abnormality. LVH Chest x-ray was personally reviewed which is consistent with congestive heart failure Echocardiogram was personally reviewed which shows: Normal left ventricular cavity size. Mild concentric left ventricular hypertrophy. Moderate global left ventricular systolic dysfunction. Ejection fraction is visually estimated at 30 %. Tissue Doppler/Mitral Doppler indices are consistent with restrictive physiology with markedly elevated left atrial pressure (Stage III-IV diastolic dysfunction). These segments of the LV are hypokinetic mid anterior segment, apical anterior segment, apical lateral segment, inferior apex segment, inferoseptum mid segment, apex and apical septum. There is moderate enlargement of left atrium. Mitral valve leaflets appear mildly thickened. Mild mitral annular calcification. Mild mitral valve regurgitation. Aortic cusps appear mildly calcified. Trace to mild aortic valve regurgitation. Normal appearance of the tricuspid valve. Estimated peak PA systolic pressure 60 mmHg. There is mild to moderate tricuspid regurgitation. Normal pericardium with no significant pericardial effusion. Right pleural effusion seen. Objective Vitals Vital Signs Date Temp Pulse Resp B/P (MAP) Pulse Ox O2 O2 Flow FiO2 Time Delivery Rate 07/04/18 68 08:08 07/04/18 18 93 21 07:37 07/04/18 98.0 127/69 07:31 (88) 07/02/18 Room Air 13:00 07/01/18 2.0 20:00 Intake and Output 07/03/18 07/03/18 07/04/18 1515:00 23:00 07:00 IntakeIntake Total 1290 ml 490 ml OutputOutput Total 700 ml BalanceBalance 1290 ml -210 ml Results/Medications Result Diagram: 07/03/18 0516 07/04/18 0528 Results 24 hrs Laboratory Tests Test 07/03/18 11:53 07/03/18 17:01 07/03/18 20:27 07/04/18 01:11 Bedside Glucose 364 H 225 H 212 266 H Test 07/04/18 05:28 07/04/18 07:57 Sodium Level 135 Potassium Level 4.2 Chloride Level 95 L Carbon Dioxide Level 32 H Anion Gap 8 # Blood Urea Nitrogen 45 H Creatinine 1.02 Est Glomerular Filtrat Rate mL/min Glucose Level 306 H Calcium Level 9.1 Magnesium Level 1.9 Total Bilirubin 0.2 Direct Bilirubin 0.00 Indirect Bilirubin 0.2 Aspartate Amino 66 H Transf (AST/SGOT) Alanine 74 H Aminotransferase (AL T/SGPT) Alkaline Phosphatase 100 B-Type Natriuretic 2610 H Peptide Total Protein 6.2 # Albumin 3.4 Globulin 2.80 Albumin/Globulin 1.21 Ratio Bedside Glucose 231 H Home Meds Active Scripts Lidocaine (Lidoderm) 1 Each Adh..patch, 1 EACH TP DAILY for 7 Days Prov:ERIK CAPUTO PA-C 09/15/17 Ibuprofen* (Motrin*) 600 Mg Tab, 600 MG PO Q6H PRN for PAIN AND OR ELEVATED TEMP, #30 TAB Prov:ERIK CAPUTO PA-C 09/15/17 Docusate Sodium* (Colace*) 100 Mg Capsule, 100 MG PO BID, #30 CAP Prov:SANJUANA CARTAGENA MD 07/13/17 Acetaminophen* (Tylophen*) 500 Mg Capsule, 1 CAP PO Q6H PRN for PAIN AND OR ELEVATED TEMP, #20 CAP Prov:SANJUANA CARTAGENA MD 07/13/17 Sennosides* (Senna Lax*) 8.6 Mg Tablet, 1 TAB PO BID PRN for CONSTIPATION, #14 TAB Prov:KALYANI MIX DO 04/04/16 Spironolactone* (Aldactone*) 25 Mg Tab, 25 MG PO DAILY for 30 Days, TAB Prov:SRAVANTHI GUADALUPE 09/20/15 Ondansetron Hcl* (Zofran* ODT) 4 mg -ODT Tab.disper, 4 MG PO Q6 PRN for NAUSEA AND/OR VOMITING, #10 TAB Prov:GREGG ZAMORA NP 09/07/15 Reported Medications Doxazosin Mesylate* (Doxazosin Mesylate*) 8 Mg Tablet, 8 MG PO HS, TAB 09/10/15 Sitagliptin* (Januvia*) 100 Mg Tablet, 100 MG PO DAILY, #30 TAB 09/10/15 Metformin* (Glucophage*) 1,000 Mg Tablet, 1000 MG PO BID, #60 TAB 09/10/15 Atorvastatin* (Atorvastatin*) 40 Mg Tablet, 40 MG PO QHS, #30 TAB 09/10/15 Benazepril Hcl* (Benazepril Hcl*) 40 Mg Tablet, 40 MG PO DAILY, TAB 06/20/14 Discontinued Scripts Acetaminophen (TYLENOL 325 MG TAB) 325 Mg Tab, 650 MG PO Q6H PRN for PAIN LEVEL 1-3 OR FEVER, #1 TAB Prov:ANGEL DEUTSCH MD 06/24/14 Medications Current Medications Acetaminophen (Tylenol Tab) 650 mg Q6H PRN PO MILD PAIN(1-3)OR ELEVATED TEMP; Start 06/29/18 at 22:00 Atorvastatin Calcium (Lipitor) 40 mg QHS PO Last administered on 07/03/18at 20:29; Admin Dose 40 MG; Start 06/30/18 at 21:00 Docusate Sodium (Colace) 100 mg BID PO Last administered on 07/03/18at 20:29; Admin Dose 100 MG; Start 06/30/18 at 09:00 Doxazosin Mesylate (Cardura) 8 mg HS PO Last administered on 07/03/18at 20:30; Admin Dose 8 MG; Start 06/30/18 at 21:00 Ibuprofen (Motrin) 600 mg Q6H PRN PO MILD PAIN(1-3)OR ELEVATED TEMP; Start 06/29/18 at 22:00 Lidocaine (Lidoderm) 5 patch DAILY PRN TD PAIN; Start 06/29/18 at 22:00 Spironolactone (Aldactone) 25 mg DAILY PO Last administered on 07/03/18at 08:41; Admin Dose 25 MG; Start 06/30/18 at 09:00 Linagliptin (Tradjenta) 5 mg DAILY PO Last administered on 07/03/18at 08:39; Admin Dose 5 MG; Start 06/30/18 at 09:00 Ondansetron HCl (Zofran Inj) 4 mg Q6H PRN IV NAUSEA AND/OR VOMITING; Start 06/29/18 at 22:30 Insulin Human NPH (Humulin N) 10 unit BID SC Last administered on 07/04/18at 08:11; Admin Dose 10 UNIT; Start 06/30/18 at 09:00 Pantoprazole (Protonix Tab) 40 mg DAILY@06 PO Last administered on 07/04/18at 06 :11; Admin Dose 40 MG; Start 06/30/18 at 06:00 Nitroglycerin (Nitroglycerin (Sl Tab) 0.4 Mg) 1 tab Q5M PRN SL ANGINA; Start 06/29/18 at 22:30 Albuterol/ Ipratropium (Duoneb) 3 ml Q6H RESP THERAPY HHN Last administered on 07/04/18at 07:37; Admin Dose 3 ML; Start 06/30/18 at 02:00 Miscellaneous Information 1 ea NOTE XX ; Start 06/29/18 at 23:00 Glucose (Glutose) 15 gm Q15M PRN PO DECREASED GLUCOSE; Start 06/29/18 at 23:00 Glucose (Glutose) 22.5 gm Q15M PRN PO DECREASED GLUCOSE; Start 06/29/18 at 23:00 Dextrose (D50w Syringe) 25 ml Q15M PRN IV DECREASED GLUCOSE; Start 06/29/18 at 23:00 Dextrose (D50w Syringe) 50 ml Q15M PRN IV DECREASED GLUCOSE; Start 06/29/18 at 23:00 Glucagon (Glucagen) 1 mg Q15M PRN IM DECREASED GLUCOSE; Start 06/29/18 at 23:00 Glucose (Glutose) 15 gm Q15M PRN BUCCAL DECREASED GLUCOSE; Start 06/29/18 at 23:00 Guaifenesin/ Dextromethorphan (Robitussin Dm Liquid Cup) 10 ml Q4H PRN PO COUGH Last administered on 07/02/18 22:02; Admin Dose 10 ML; Start 06/30/18 at 11:00 Aspirin (Aspirin) 81 mg DAILY PO Last administered on 07/03/18 08:41; Admin Dose 81 MG; Start 07/01/18 at 09:00 Carvedilol (Coreg) 3.125 mg BID PO Last administered on 07/03/18 20:30; Admin Dose 3.125 MG; Start 06/30/18 at 21:00 Prasugrel (Effient) 10 mg DAILY PO Last administered on 07/03/18 10:17; Admin Dose 10 MG; Start 07/02/18 at 09:00 Diagnostic Test (Pha) (Accu-Chek) 1 ea 02 XX Last administered on 07/04/18 02:01; Admin Dose 1 EA; Start 07/02/18 at 02:00 Insulin Aspart (Novolog Insulin Pen) 9 unit WITH MEALS SC Last administered on 07/04/18 08:11; Admin Dose 9 UNIT; Start 07/02/18 at 07:35 Insulin Aspart (Novolog Insulin Pen) NOVOLOG *MILD* ALGORITHM WITH MEALS BEDT LOU SC Last administered on 07/04/18 08:11; Admin Dose 3 UNIT; Start 07/02/18 at 07:35 Insulin Glargine (Lantus) 27 units DAILY@2000 SC Last administered on 07/03/18 20:43; Admin Dose 27 UNITS; Start 07/02/18 at 20:00 Methylprednisolone Sodium Succinate (Solu-Medrol) 20 mg BID IV Last administe red on 07/03/18 20:31; Admin Dose 20 MG; Start 07/02/18 at 21:00 Losartan Potassium (Cozaar) 25 mg DAILY PO Last administered on 07/03/18 08:40; Admin Dose 25 MG; Start 07/03/18 at 09:00 Furosemide (Lasix) 40 mg BID DIURETICS PO Last administered on 07/04/18 06:11; Admin Dose 40 MG; Start 07/03/18 at 08:30 Assessment/Plan Hospital Course (Demo Recall) 1. 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 Status post PCI of his PDA 2. Congestive heart failure: Acute due to systolic heart failure 3. Severe ischemic cardiomyopathy 4. Diabetes 5. Hypertension 6. Dyslipidemia 7. Anemia Recommendations: We cont po Lasix . Chest x-ray will be checked today Aldactone Continue with carvedilol Antibiotic management as per internal medicine Continue losartan I have explained to the patient multiple times regarding his cardiac issues as well as PA and PCI and urgency of compliant with his medication including and especially aspirin and Effient. Patient tells me that he understands. However he appears to not have a good insight of what is going on his cardiac situations. I am also concerned about his family situation seems he does not appear to have any supporting family around him. Consider manager social work in obtain the medication as well as reinforcement of the compliance. I have left a prescription for aspirin and Effient in the chart, and ask nursing staff and case supervisor to have the prescription filled and have it available to the patient prior to discharge DC planning once patient is able to filling the prescription for Effient and aspirin at least Thank you for this referral. We will continue to follow along with you JA CHACON MD [facility] JA CHACON MD Jul 04, 2018 08:45
[2018-07-04] MEDS: SPIRONOLACTONE 25 MG TAB PO SCH (09:09)
[2018-07-04] MEDS: ASPIRIN 81 MG TAB PO SCH (09:09)
[2018-07-04] MEDS: METHYLPREDNISOLONE 40 MG INJ IV SCH ×2 (09:10→21:02)
[2018-07-04] MEDS: DOCUSATE SODIUM 100 MG CAP PO SCH ×2 (09:11→21:00)
[2018-07-04] MEDS: PRASUGREL HYDROCHLORIDE 10 MG TABLET PO SCH (09:11)
[2018-07-04] MEDS: LOSARTAN 25 MG TAB PO SCH (09:11)
[2018-07-04] MEDS: LINAGLIPTIN 5 MG TABLET PO SCH (09:12)
--- NOTE | 2018-07-04 16:10 | PN ---
Date/Time of Note Date/Time of Note DATE: 07/04/18 TIME: 16:06 Assessment/Plan VTE Prophylaxis Risk score (from Nsg)>0 risk: 5 SCD applied (from Nsg): Yes Pharmacological prophylaxis: NA/contraindicated Pharm contraindication: surgical contra Lines/Catheters IV Catheter Type (from Nrsg): Saline Lock Urinary Cath still in place: No Assessment/Plan Hospital Course Patient had episode of chest pain with getting out of bed currently back to bed denies chest pain, patient with with frequent PVC PAC and episodes of bigeminy, continue telemetry monitoring, elevated blood sugar, will adjust Lantus and NovoLog for better glycemic control, will obtain diabetic education consult for insulin injection. Assessment/Plan -Non-ST elevation myocardial infarction. Multivessel coronary artery disease including chronic total occlusion of his ostial left anterior descending artery. Status post PCI of his PDA. Dr. Herman is following in cardiology consultation. -Acute systolic congestive heart failure -Severe ischemic cardiomyopathy -Poorly controlled diabetes mellitus type 2 with hemoglobin A1c of 11. Continue Lantus and pre-meal NovoLog. -Hypertension -Dyslipidemia -Anemia Further recommendations based on clinical course. Plan of care discussed with Dr. Lawson Result Diagram: 07/03/18 0516 07/04/18 0528 Results 24hrs Laboratory Tests Test 07/03/18 17:01 07/03/18 20:27 07/04/18 01:11 07/04/18 05:28 Bedside Glucose 225 H 212 266 H Sodium Level 135 Potassium Level 4.2 Chloride Level 95 L Carbon Dioxide Level 32 H Anion Gap 8 # Blood Urea Nitrogen 45 H Creatinine 1.02 Est Glomerular Filtrat Rate mL/min Glucose Level 306 H Calcium Level 9.1 Magnesium Level 1.9 Total Bilirubin 0.2 Direct Bilirubin 0.00 Indirect Bilirubin 0.2 Aspartate Amino 66 H Transf (AST/SGOT) Alanine 74 H Aminotransferase (AL T/SGPT) Alkaline Phosphatase 100 B-Type Natriuretic 2610 H Peptide Total Protein 6.2 # Albumin 3.4 Globulin 2.80 Albumin/Globulin 1.21 Ratio Test 07/04/18 07:57 07/04/18 11:44 Bedside Glucose 231 H 159 Exam/Review of Systems Exam Vitals Vital Signs Date Temp Pulse Resp B/P (MAP) Pulse Ox O2 O2 Flow FiO2 Time Delivery Rate 07/04/18 98.9 59 16 117/60 92 15:55 (79) 07/04/18 21 13:15 07/02/18 Room Air 13:00 07/01/18 2.0 20:00 Intake and Output 07/03/18 07/03/18 07/04/18 1515:00 23:00 07:00 IntakeIntake Total 1290 ml 490 ml OutputOutput Total 700 ml BalanceBalance 1290 ml -210 ml Exam Constitutional: alert, oriented Respiratory: clear to auscultation Cardiovascular: regular rate and rhythm Gastrointestinal: soft, non-tender Musculoskeletal: nl extremities to inspection Extremities: normal pulses Neurological: nl mental status Results Results 24hrs Laboratory Tests Test 07/03/18 17:01 07/03/18 20:27 07/04/18 01:11 07/04/18 05:28 Bedside Glucose 225 H 212 266 H Sodium Level 135 Potassium Level 4.2 Chloride Level 95 L Carbon Dioxide Level 32 H Anion Gap 8 # Blood Urea Nitrogen 45 H Creatinine 1.02 Est Glomerular Filtrat Rate mL/min Glucose Level 306 H Calcium Level 9.1 Magnesium Level 1.9 Total Bilirubin 0.2 Direct Bilirubin 0.00 Indirect Bilirubin 0.2 Aspartate Amino 66 H Transf (AST/SGOT) Alanine 74 H Aminotransferase (AL T/SGPT) Alkaline Phosphatase 100 B-Type Natriuretic 2610 H Peptide Total Protein 6.2 # Albumin 3.4 Globulin 2.80 Albumin/Globulin 1.21 Ratio Test 07/04/18 07:57 07/04/18 11:44 Bedside Glucose 231 H 159 Medications Medication Current Medications Acetaminophen (Tylenol Tab) 650 mg Q6H PRN PO MILD PAIN(1-3)OR ELEVATED TEMP; Start 06/29/18 at 22:00 Atorvastatin Calcium (Lipitor) 40 mg QHS PO Last administered on 07/03/18at 20:29; Admin Dose 40 MG; Start 06/30/18 at 21:00 Docusate Sodium (Colace) 100 mg BID PO Last administered on 07/04/18at 09:11; Admin Dose 100 MG; Start 06/30/18 at 09:00 Doxazosin Mesylate (Cardura) 8 mg HS PO Last administered on 07/03/18at 20:30; Admin Dose 8 MG; Start 06/30/18 at 21:00 Ibuprofen (Motrin) 600 mg Q6H PRN PO MILD PAIN(1-3)OR ELEVATED TEMP; Start 06/29/18 at 22:00 Lidocaine (Lidoderm) 5 patch DAILY PRN TD PAIN; Start 06/29/18 at 22:00 Spironolactone (Aldactone) 25 mg DAILY PO Last administered on 07/04/18at 09:09; Admin Dose 25 MG; Start 06/30/18 at 09:00 Linagliptin (Tradjenta) 5 mg DAILY PO Last administered on 07/04/18at 09:12; Admin Dose 5 MG; Start 06/30/18 at 09:00 Ondansetron HCl (Zofran Inj) 4 mg Q6H PRN IV NAUSEA AND/OR VOMITING; Start 06/29/18 at 22:30 Insulin Human NPH (Humulin N) 10 unit BID SC Last administered on 07/04/18at 08:11; Admin Dose 10 UNIT; Start 06/30/18 at 09:00 Pantoprazole (Protonix Tab) 40 mg DAILY@06 PO Last administered on 07/04/18at 06:11; Admin Dose 40 MG; Start 06/30/18 at 06:00 Nitroglycerin (Nitroglycerin (Sl Tab) 0.4 Mg) 1 tab Q5M PRN SL ANGINA; Start 06/29/18 at 22:30 Albuterol/ Ipratropium (Duoneb) 3 ml Q6H RESP THERAPY HHN Last administered on 07/04/18at 13:15; Admin Dose 3 ML; Start 06/30/18 at 02:00 Miscellaneous Information 1 ea NOTE XX ; Start 06/29/18 at 23:00 Glucose (Glutose) 15 gm Q15M PRN PO DECREASED GLUCOSE; Start 06/29/18 at 23:00 Glucose (Glutose) 22.5 gm Q15M PRN PO DECREASED GLUCOSE; Start 06/29/18 at 23:00 Dextrose (D50w Syringe) 25 ml Q15M PRN IV DECREASED GLUCOSE; Start 06/29/18 at 23:00 Dextrose (D50w Syringe) 50 ml Q15M PRN IV DECREASED GLUCOSE; Start 06/29/18 at 23:00 Glucagon (Glucagen) 1 mg Q15M PRN IM DECREASED GLUCOSE; Start 06/29/18 at 23:00 Glucose (Glutose) 15 gm Q15M PRN BUCCAL DECREASED GLUCOSE; Start 06/29/18 at 23:00 Guaifenesin/ Dextromethorphan (Robitussin Dm Liquid Cup) 10 ml Q4H PRN PO COUGH Last administered on 07/02/18 22:02; Admin Dose 10 ML; Start 06/30/18 at 11:00 Aspirin (Aspirin) 81 mg DAILY PO Last administered on 07/04/18 09:09; Admin Dose 81 MG; Start 07/01/18 at 09:00 Carvedilol (Coreg) 3.125 mg BID PO Last administered on 07/04/18 09:09; Admin Dose 3.125 MG; Start 06/30/18 at 21:00 Prasugrel (Effient) 10 mg DAILY PO Last administered on 07/04/18 09:11; Admin Dose 10 MG; Start 07/02/18 at 09:00 Diagnostic Test (Pha) (Accu-Chek) 1 ea 02 XX Last administered on 07/04/18 02:01; Admin Dose 1 EA; Start 07/02/18 at 02:00 Insulin Aspart (Novolog Insulin Pen) 9 unit WITH MEALS SC Last administered on 07/04/18 11:59; Admin Dose 9 UNIT; Start 07/02/18 at 07:35 Insulin Aspart (Novolog Insulin Pen) NOVOLOG *MILD* ALGORITHM WITH MEALS BEDTIME SC Last administered on 07/04/18 11:58; Admin Dose 1 UNIT; Start 07/02/18 at 07:35 Insulin Glargine (Lantus) 27 units DAILY@2000 SC Last administered on 07/03/18 20:43; Admin Dose 27 UNITS; Start 07/02/18 at 20:00 Methylprednisolone Sodium Succinate (Solu-Medrol) 20 mg BID IV Last administered on 07/04/18 09:10; Admin Dose 20 MG; Start 07/02/18 at 21:00 Losartan Potassium (Cozaar) 25 mg DAILY PO Last administered on 07/04/18 09:11; Admin Dose 25 MG; Start 07/03/18 at 09:00 Furosemide (Lasix) 40 mg BID DIURETICS PO Last administered on 07/04/18 06:11; Admin Dose 40 MG; Start 07/03/18 at 08:30 SRAVANTHI GUADALUPE Jul 04, 2018 16:10
[2018-07-04] MEDS: GUAIFENESIN/DM 5ML CUP PO PRN ×2 (17:17→22:29)
[2018-07-04] MEDS: ATORVASTATIN 40 MG TAB PO SCH (21:00)
[2018-07-04] MEDS: DOXAZOSIN 4 MG TAB PO SCH (21:01)
[2018-07-04] MEDS: INSULIN GLARGINE [LANTus] (100 UNITS/ML) SYG SC SCH (21:12)
[2018-07-05] VITALS (12 sets, daily range): BP systolic 98–145; BP diastolic 55–73; PULSE 54–73; RESP 17–22
[2018-07-05] MEDS: ALBUTEROL/IPRATROPIUM (NEB) 3 ML AMP HHN SCH ×4 (01:33→19:31)
[2018-07-05] MEDS: ACCU-CHEK XX SCH (01:49)
[2018-07-05] MEDS: FUROSEMIDE 40 MG TAB PO SCH (05:54)
[2018-07-05] MEDS: PANTOPRAZOLE (EC) 40 MG TAB PO SCH (05:54)
[2018-07-05] MEDS: GUAIFENESIN/DM 5ML CUP PO PRN (05:58)
[2018-07-05] MEDS: NPH, HUMAN INSULIN ISOPHANE 3ML VIAL SC SCH (08:10)
[2018-07-05] MEDS: INSULIN ASPART [NOVOLOG] 3 ML PEN SC SCH ×7 (08:10→20:35)
--- NOTE | 2018-07-05 11:40 | PN ---
Date/Time of Note Date/Time of Note DATE: 07/05/18 TIME: 11:37 Assessment/Plan VTE Prophylaxis Risk score (from Nsg)>0 risk: 4 SCD applied (from Nsg): Yes Lines/Catheters IV Catheter Type (from Nrsg): Saline Lock Urinary Cath still in place: No Assessment/Plan Assessment/Plan -Non-ST elevation myocardial infarction. Multivessel coronary artery disease including chronic total occlusion of his ostial left anterior descending artery. Status post PCI of his PDA. Dr. Herman is following in cardiology consultation. - Hyperglycemia 2/2 solumedrol - glycemic control -Acute systolic congestive heart failure -Severe ischemic cardiomyopathy -Poorly controlled diabetes mellitus type 2 with hemoglobin A1c of 11. Continue Lantus and pre-meal NovoLog. -Hypertension -Dyslipidemia -Anemia Further recommendations based on clinical course. Plan of care discussed with Dr. Lawson Result Diagram: 07/03/1816 07/04/1828 Results 24hrs Laboratory Tests Test 07/04/18 11:44 07/04/18 17:07 07/04/18 20:58 07/05/18 01:14 Bedside Glucose 159 221 H 340 H 256 H Test 07/05/18 07:59 Bedside Glucose 238 H Exam/Review of Systems Exam Vitals Vital Signs Date Temp Pulse Resp B/P (MAP) Pulse Ox O2 O2 Flow FiO2 Time Delivery Rate 07/05/18 97.8 56 22 98/55 (69) 96 Room Air 11:22 07/05/18 07:39 07/01/18 2.0 20:00 Intake and Output 07/04/18 07/04/18 07/05/18 1515:00 23:00 07:00 IntakeIntake Total 1040 ml 120 ml BalanceBalance 1040 ml 120 ml Results Results 24hrs Laboratory Tests Test 07/04/18 11:44 07/04/18 17:07 07/04/18 20:58 07/05/18 01:14 Bedside Glucose 159 221 H 340 H 256 H Test 07/05/18 07:59 Bedside Glucose 238 H Medications Medication Current Medications Acetaminophen (Tylenol Tab) 650 mg Q6H PRN PO MILD PAIN(1-3)OR ELEVATED TEMP; Start 06/29/18 at 22:00 Atorvastatin Calcium (Lipitor) 40 mg QHS PO Last administered on 07/04/18at 21:00; Admin Dose 40 MG; Start 06/30/18 at 21:00 Docusate Sodium (Colace) 100 mg BID PO Last administered on 07/04/18at 21:00; Admin Dose 100 MG; Start 06/30/18 at 09:00 Doxazosin Mesylate (Cardura) 8 mg HS PO Last administered on 07/04/18at 21:01; Admin Dose 8 MG; Start 06/30/18 at 21:00 Ibuprofen (Motrin) 600 mg Q6H PRN PO MILD PAIN(1-3)OR ELEVATED TEMP; Start 06/29/18 at 22:00 Lidocaine (Lidoderm) 5 patch DAILY PRN TD PAIN; Start 06/29/18 at 22:00 Spironolactone (Aldactone) 25 mg DAILY PO Last administered on 07/04/18at 09:09; Admin Dose 25 MG; Start 06/30/18 at 09:00 Linagliptin (Tradjenta) 5 mg DAILY PO Last administered on 07/04/18at 09:12; Admin Dose 5 MG; Start 06/30/18 at 09:00 Ondansetron HCl (Zofran Inj) 4 mg Q6H PRN IV NAUSEA AND/OR VOMITING; Start 06/29/18 at 22:30 Pantoprazole (Protonix Tab) 40 mg DAILY@06 PO Last administered on 07/05/18at 05:54; Admin Dose 40 MG; Start 06/30/18 at 06:00 Nitroglycerin (Nitroglycerin (Sl Tab) 0.4 Mg) 1 tab Q5M PRN SL ANGINA; Start 06/29/18 at 22:30 Albuterol/ Ipratropium (Duoneb) 3 ml Q6H RESP THERAPY HHN Last administered on 07/05/18at 07:39; Admin Dose 3 ML; Start 06/30/18 at 02:00 Miscellaneous Information 1 ea NOTE XX ; Start 06/29/18 at 23:00 Glucose (Glutose) 15 gm Q15M PRN PO DECREASED GLUCOSE; Start 06/29/18 at 23:00 Glucose (Glutose) 22.5 gm Q15M PRN PO DECREASED GLUCOSE; Start 06/29/18 at 23:00 Dextrose (D50w Syringe) 25 ml Q15M PRN IV DECREASED GLUCOSE; Start 06/29/18 at 23:00 Dextrose (D50w Syringe) 50 ml Q15M PRN IV DECREASED GLUCOSE; Start 06/29/18 at 23:00 Glucagon (Glucagen) 1 mg Q15M PRN IM DECREASED GLUCOSE; Start 06/29/18 at 23:00 Glucose (Glutose) 15 gm Q15M PRN BUCCAL DECREASED GLUCOSE; Start 06/29/18 at 23:00 Guaifenesin/ Dextromethorphan (Robitussin Dm Liquid Cup) 10 ml Q4H PRN PO COUGH Last administered on 07/05/18 05:58; Admin Dose 10 ML; Start 06/30/18 at 11:00 Aspirin (Aspirin) 81 mg DAILY PO Last administered on 07/04/18 09:09; Admin Dose 81 MG; Start 07/01/18 at 09:00 Carvedilol (Coreg) 3.125 mg BID PO Last administered on 07/04/18 21:00; Admin Dose 3.125 MG; Start 06/30/18 at 21:00 Prasugrel (Effient) 10 mg DAILY PO Last administered on 07/04/18 09:11; Admin Dose 10 MG; Start 07/02/18 at 09:00 Diagnostic Test (Pha) (Accu-Chek) 1 ea 02 XX Last administered on 07/05/18 01:49; Admin Dose 1 EA; Start 07/02/18 at 02:00 Insulin Aspart (Novolog Insulin Pen) NOVOLOG *MILD* ALGORITHM WITH MEALS BEDTIME SC Last administered on 07/05/18 08:10; Admin Dose 3 UNIT; Start 07/02/18 at 07:35 Losartan Potassium (Cozaar) 25 mg DAILY PO Last administered on 07/04/18 09:11; Admin Dose 25 MG; Start 07/03/18 at 09:00 Furosemide (Lasix) 40 mg BID DIURETICS PO Last administered on 07/05/18 05:54; Admin Dose 40 MG; Start 07/03/18 at 08:30 Insulin Glargine (Lantus) 32 units DAILY@2000 SC Last administered on 07/04/18 21:12; Admin Dose 32 UNITS; Start 07/04/18 at 20:00 Insulin Aspart (Novolog Insulin Pen) 10 unit WITH MEALS SC Last administered on 07/05/18 08:10; Admin Dose 10 UNIT; Start 07/05/18 at 08:00 Methylprednisolone Sodium Succinate (Solu-Medrol) 20 mg DAILY IV ; Start 07/05/18 at 09:00 Insulin Human NPH (Humulin N) 10 unit DAILY SC Last administered on 07/05/18at 08:10; Admin Dose 10 UNIT; Start 07/05/18 at 09:00 MOSHE YOUNG Jul 05, 2018 11:40
[2018-07-05] MEDS: LINAGLIPTIN 5 MG TABLET PO SCH (12:07)
[2018-07-05] MEDS: ASPIRIN 81 MG TAB PO SCH (12:07)
[2018-07-05] MEDS: SPIRONOLACTONE 25 MG TAB PO SCH (12:07)
[2018-07-05] MEDS: DOCUSATE SODIUM 100 MG CAP PO SCH ×2 (12:07→20:20)
[2018-07-05] MEDS: METHYLPREDNISOLONE 40 MG INJ IV SCH (12:09)
[2018-07-05] MEDS: LOSARTAN 25 MG TAB PO SCH (12:10)
[2018-07-05] MEDS: PRASUGREL HYDROCHLORIDE 10 MG TABLET PO SCH (12:10)
--- NOTE | 2018-07-05 16:41 | CONS ---
Consult Date/Type/Reason Admit Date/Time Jun 29, 2018 at 19:13 Initial Consult Date 06/30/18 Type of Consultation: cv Requesting Provider: MOSHE YOUNG Date/Time of Note DATE: 07/05/18 TIME: 16:40 Subjective Interventional cardiology follow-up progress note Subjective: Case discussed with the staff and telemetry was reviewed. Patient remains in normal sinus rhythm. Discussed with staff and RN Patient denies any left-sided chest pain or pressure to me wants to go home today Patient shortness of breath has resolved but he still complaining of cough Denies any bleeding to me No groin pain no bleeding Discussed with "asset analyst" Status post PCI of the PDA 07/01/2018 Objective: General: Obese gentleman in respiratory distress HEENT: NC/AT. pupils are equal. round. NECK: NO JVD. no stridor. CV: RRR. systolic murmur; no gallop or rubs. PULM: no wheezing no rhonchi. GI: SOFT, NT, ND, no rebound or guarding Extremity:trace B/L LE edema. no clubbing. neuro: awake and alert, OX3. Psych: calm and pleasant rectal: deferred : normal EKG was personally reviewed showed normal sinus rhythm anteroseptal infarct age undetermined. Marked ST-T wave abnormality. LVH Chest x-ray was personally reviewed which is consistent with congestive heart failure Echocardiogram was personally reviewed which shows: Normal left ventricular cavity size. Mild concentric left ventricular hypertrophy. Moderate global left ventricular systolic dysfunction. Ejection fraction is visually estimated at 30 %. Tissue Doppler/Mitral Doppler indices are consistent with restrictive physiology with markedly elevated left atrial pressure (Stage III-IV diastolic dysfunction). These segments of the LV are hypokinetic mid anterior segment, apical anterior segment, apical lateral segment, inferior apex segment, inferoseptum mid segment, apex and apical septum. There is moderate enlargement of left atrium. Mitral valve leaflets appear mildly thickened. Mild mitral annular calcification. Mild mitral valve regurgitation. Aortic cusps appear mildly calcified. Trace to mild aortic valve regurgitation. Normal appearance of the tricuspid valve. Estimated peak PA systolic pressure 60 mmHg. There is mild to moderate tricuspid regurgitation. Normal pericardium with no significant pericardial effusion. Right pleural effusion seen. Objective Vitals Vital Signs Date Temp Pulse Resp B/P (MAP) Pulse Ox O2 O2 Flow FiO2 Time Delivery Rate 07/05/18 98.0 71 22 109/64 96 Room Air 16:34 (79) 07/05/18 21 14:08 07/01/18 2.0 20:00 Intake and Output 07/04/18 07/04/18 07/05/18 1414:59 22:59 06:59 IntakeIntake Total 1040 ml 120 ml BalanceBalance 1040 ml 120 ml Results/Medications Result Diagram: 07/03/18 0516 07/04/18 0528 Results 24 hrs Laboratory Tests Test 07/04/18 17:07 07/04/18 20:58 07/05/18 01:14 07/05/18 07:59 Bedside Glucose 221 H 340 H 256 H 238 H Test 07/05/18 12:03 Bedside Glucose 117 Home Meds Active Scripts Lidocaine (Lidoderm) 1 Each Adh..patch, 1 EACH TP DAILY for 7 Days Prov:ERIK CAPUTO PA-C 09/15/17 Ibuprofen* (Motrin*) 600 Mg Tab, 600 MG PO Q6H PRN for PAIN AND OR ELEVATED TEMP, #30 TAB Prov:ERIK CAPUTO PA-C 09/15/17 Docusate Sodium* (Colace*) 100 Mg Capsule, 100 MG PO BID, #30 CAP Prov:SANJUANA CARTAGENA MD 07/13/17 Acetaminophen* (Tylophen*) 500 Mg Capsule, 1 CAP PO Q6H PRN for PAIN AND OR ELEVATED TEMP, #20 CAP Prov:SANJUANA CARTAGENA MD 07/13/17 Sennosides* (Senna Lax*) 8.6 Mg Tablet, 1 TAB PO BID PRN for CONSTIPATION, #14 TAB Prov:KALYANI MIX DO 04/04/16 Spironolactone* (Aldactone*) 25 Mg Tab, 25 MG PO DAILY for 30 Days, TAB Prov:SRAVANTHI GUADALUPE 09/20/15 Ondansetron Hcl* (Zofran* ODT) 4 mg -ODT Tab.disper, 4 MG PO Q6 PRN for NAUSEA AND/OR VOMITING, #10 TAB Prov:GREGG ZAMORA NP 09/07/15 Reported Medications Doxazosin Mesylate* (Doxazosin Mesylate*) 8 Mg Tablet, 8 MG PO HS, TAB 09/10/15 Sitagliptin* (Januvia*) 100 Mg Tablet, 100 MG PO DAILY, #30 TAB 09/10/15 Metformin* (Glucophage*) 1,000 Mg Tablet, 1000 MG PO BID, #60 TAB 09/10/15 Atorvastatin* (Atorvastatin*) 40 Mg Tablet, 40 MG PO QHS, #30 TAB 09/10/15 Benazepril Hcl* (Benazepril Hcl*) 40 Mg Tablet, 40 MG PO DAILY, TAB 06/20/14 Discontinued Scripts Acetaminophen (TYLENOL 325 MG TAB) 325 Mg Tab, 650 MG PO Q6H PRN for PAIN LEVEL 1-3 OR FEVER, #1 TAB Prov:ANGEL DEUTSCH MD 06/24/14 Medications Current Medications Acetaminophen (Tylenol Tab) 650 mg Q6H PRN PO MILD PAIN(1-3)OR ELEVATED TEMP; Start 06/29/18 at 22:00 Atorvastatin Calcium (Lipitor) 40 mg QHS PO Last administered on 07/04/18at 21:00; Admin Dose 40 MG; Start 06/30/18 at 21:00 Docusate Sodium (Colace) 100 mg BID PO Last administered on 07/05/18at 12:07; Admin Dose 100 MG; Start 06/30/18 at 09:00 Doxazosin Mesylate (Cardura) 8 mg HS PO Last administered on 07/04/18at 21:01; Admin Dose 8 MG; Start 06/30/18 at 21:00 Ibuprofen (Motrin) 600 mg Q6H PRN PO MILD PAIN(1-3)OR ELEVATED TEMP; Start 06/29/18 at 22:00 Lidocaine (Lidoderm) 5 patch DAILY PRN TD PAIN; Start 06/29/18 at 22:00 Spironolactone (Aldactone) 25 mg DAILY PO Last administered on 07/05/18at 12:07; Admin Dose 25 MG; Start 06/30/18 at 09:00 Linagliptin (Tradjenta) 5 mg DAILY PO Last administered on 07/05/18at 12:07; Admin Dose 5 MG; Start 06/30/18 at 09:00 Ondansetron HCl (Zofran Inj) 4 mg Q6H PRN IV NAUSEA AND/OR VOMITING; Start 06/29/18 at 22:30 Pantoprazole (Protonix Tab) 40 mg DAILY@06 PO Last administered on 07/05/18at 05:54; Admin Dose 40 MG; Start 06/30/18 at 06:00 Nitroglycerin (Nitroglycerin (Sl Tab) 0.4 Mg) 1 tab Q5M PRN SL ANGINA; Start 06/29/18 at 22:30 Albuterol/ Ipratropium (Duoneb) 3 ml Q6H RESP THERAPY HHN Last administered on 07/05/18at 14:08; Admin Dose 3 ML; Start 06/30/18 at 02:00 Miscellaneous Information 1 ea NOTE XX ; Start 06/29/18 at 23:00 Glucose (Glutose) 15 gm Q15M PRN PO DECREASED GLUCOSE; Start 06/29/18 at 23:00 Glucose (Glutose) 22.5 gm Q15M PRN PO DECREASED GLUCOSE; Start 06/29/18 at 23:00 Dextrose (D50w Syringe) 25 ml Q15M PRN IV DECREASED GLUCOSE; Start 06/29/18 at 23:00 Dextrose (D50w Syringe) 50 ml Q15M PRN IV DECREASED GLUCOSE; Start 06/29/18 at 23:00 Glucagon (Glucagen) 1 mg Q15M PRN IM DECREASED GLUCOSE; Start 06/29/18 at 23:00 Glucose (Glutose) 15 gm Q15M PRN BUCCAL DECREASED GLUCOSE; Start 06/29/18 at 23:00 Guaifenesin/ Dextromethorphan (Robitussin Dm Liquid Cup) 10 ml Q4H PRN PO COUGH Last administered on 07/05/18at 05:58; Admin Dose 10 ML; Start 06/30/18 at 11:00 Aspirin (Aspirin) 81 mg DAILY PO Last administered on 07/05/18at 12:07; Admin Dose 81 MG; Start 07/01/18 at 09:00 Carvedilol (Coreg) 3.125 mg BID PO Last administered on 07/05/18at 12:08; Admin Dose 3.125 MG; Start 06/30/18 at 21:00 Prasugrel (Effient) 10 mg DAILY PO Last administered on 07/05/18at 12:10; Admin Dose 10 MG; Start 07/02/18 at 09:00 Diagnostic Test (Pha) (Accu-Chek) 1 ea 02 XX Last administered on 07/05/18at 01:49; Admin Dose 1 EA; Start 07/02/18 at 02:00 Insulin Aspart (Novolog Insulin Pen) NOVOLOG *MILD* ALGORITHM WITH MEALS BEDTIME SC Last administered on 07/05/18 08:10; Admin Dose 3 UNIT; Start 07/02/18 at 07:35 Losartan Potassium (Cozaar) 25 mg DAILY PO Last administered on 07/05/18 12:10; Admin Dose 25 MG; Start 07/03/18 at 09:00 Furosemide (Lasix) 40 mg BID DIURETICS PO Last administered on 07/05/18 05:54; Admin Dose 40 MG; Start 07/03/18 at 08:30 Insulin Glargine (Lantus) 32 units DAILY@2000 SC Last administered on 07/04/18 21:12; Admin Dose 32 UNITS; Start 07/04/18 at 20:00 Insulin Aspart (Novolog Insulin Pen) 10 unit WITH MEALS SC Last administered on 07/05/18 12:18; Admin Dose 10 UNIT; Start 07/05/18 at 08:00 Methylprednisolone Sodium Succinate (Solu-Medrol) 20 mg DAILY IV Last administered on 07/05/18 12:09; Admin Dose 20 MG; Start 07/05/18 at 09:00 Insulin Human NPH (Humulin N) 10 unit DAILY SC Last administered on 07/05/18 08:10; Admin Dose 10 UNIT; Start 07/05/18 at 09:00 Assessment/Plan Hospital Course (Demo Recall) 1. 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 Status post PCI of his PDA 2. Congestive heart failure: Acute due to systolic heart failure: Currently well compensated 3. Severe ischemic cardiomyopathy 4. Diabetes 5. Hypertension 6. Dyslipidemia 7. Anemia Recommendations: We cont po Lasix today we will decrease it to once a day only. Chest x-ray shows resolution of CHF Aldactone Continue with carvedilol Antibiotic management as per internal medicine Continue losartan She has obtained his aspirin and Effient for important compliant with the medication was emphasized Okay for discharge from cardiac standpoint. Patient has been scheduled to see me as an outpatient. We will follow-up as an outpatient Thank you for this referral. JA CHACON MD [facility] JA CHACON MD Jul 05, 2018 16:41
[2018-07-05] MEDS: ATORVASTATIN 40 MG TAB PO SCH (20:20)
[2018-07-05] MEDS: DOXAZOSIN 4 MG TAB PO SCH (20:21)
[2018-07-05] MEDS: INSULIN GLARGINE [LANTus] (100 UNITS/ML) SYG SC SCH (20:36)
[2018-07-06] VITALS: PULSE 56
[2018-07-06] MEDS: ACCU-CHEK XX SCH (01:05)
[2018-07-06] MEDS: ALBUTEROL/IPRATROPIUM (NEB) 3 ML AMP HHN SCH ×2 (01:48→08:36)
[2018-07-06 03:37] VITALS: BP 118/62; PULSE 63; RESP 18
[2018-07-06 04:14] VITALS: PULSE 52
[2018-07-06] MEDS: PANTOPRAZOLE (EC) 40 MG TAB PO SCH (05:01)
[2018-07-06 08:01] VITALS: PULSE 66
[2018-07-06] MEDS: LINAGLIPTIN 5 MG TABLET PO SCH (08:06)
[2018-07-06] MEDS: ASPIRIN 81 MG TAB PO SCH (08:06)
[2018-07-06] MEDS: DOCUSATE SODIUM 100 MG CAP PO SCH (08:06)
[2018-07-06] MEDS: LOSARTAN 25 MG TAB PO SCH (08:14)
[2018-07-06] MEDS: SPIRONOLACTONE 25 MG TAB PO SCH (08:14)
[2018-07-06] MEDS: PRASUGREL HYDROCHLORIDE 10 MG TABLET PO SCH (08:16)
[2018-07-06] MEDS: METHYLPREDNISOLONE 40 MG INJ IV SCH (08:19)
[2018-07-06] MEDS: INSULIN ASPART [NOVOLOG] 3 ML PEN SC SCH ×2 (08:27→08:30)
[2018-07-06] MEDS: NPH, HUMAN INSULIN ISOPHANE 3ML VIAL SC SCH (08:36)
[2018-07-06] MEDS ORDERED: FUROSEMIDE 40 MG TAB PO SCH (09:00)
--- NOTE | 2018-07-06 11:03 | DS ---
Date/Time of Note Date/Time of Note DATE: 07/06/18 TIME: 11:01 Discharge Summary Admission/Discharge Info Admit Date/Time Jun 29, 2018 at 19:13 Discharge Date/Time 07/05/18 Discharge Diagnosis -Non-ST elevation myocardial infarction. Multivessel coronary artery disease including chronic total occlusion of his ostial left anterior descending artery. Status post PCI of his PDA. Dr. Herman is following in cardiology consultation. - Hyperglycemia 2/2 solumedrol - glycemic control -Acute systolic congestive heart failure -Severe ischemic cardiomyopathy -Poorly controlled diabetes mellitus type 2 with hemoglobin A1c of 11. Continue Lantus and pre-meal NovoLog. -Hypertension -Dyslipidemia -Anemia Patient Condition: Fair Consults Cardiology Procedures PCI of left PAD Hx of Present Illness Patient with hypertension, diabetes, coronary artery disease comes in with chest pain and was found to have myocardial infarction. Hospital Course Patient with hypertension, diabetes, coronary artery disease comes in with chest pain and was found to have myocardial infarction. Patient was found to have CAD and underwent cardiac angiogram with angioplasty. Patient tolerated the procedure and when felt to be stable per cardiology patient was sent home. Home Meds Active Scripts Lidocaine (Lidoderm) 1 Each Adh..patch, 1 EACH TP DAILY for 7 Days Prov:ERIK CAPUTO PA-C 09/15/17 Ibuprofen* (Motrin*) 600 Mg Tab, 600 MG PO Q6H PRN for PAIN AND OR ELEVATED TEMP, #30 TAB Prov:ERIK CAPUTO PA-C 09/15/17 Docusate Sodium* (Colace*) 100 Mg Capsule, 100 MG PO BID, #30 CAP Prov:SANJUANA CARTAGENA MD 07/13/17 Acetaminophen* (Tylophen*) 500 Mg Capsule, 1 CAP PO Q6H PRN for PAIN AND OR ELEVATED TEMP, #20 CAP Prov:SANJUANA CARTAGENA MD 07/13/17 Sennosides* (Senna Lax*) 8.6 Mg Tablet, 1 TAB PO BID PRN for CONSTIPATION, #14 TAB Prov:KALYANI MIX DO 04/04/16 Spironolactone* (Aldactone*) 25 Mg Tab, 25 MG PO DAILY for 30 Days, TAB Prov:SRAVANTHI GUADALUPE 09/20/15 Ondansetron Hcl* (Zofran* ODT) 4 mg -ODT Tab.disper, 4 MG PO Q6 PRN for NAUSEA AND/OR VOMITING, #10 TAB Prov:GREGG ZAMORA NP 09/07/15 Reported Medications Doxazosin Mesylate* (Doxazosin Mesylate*) 8 Mg Tablet, 8 MG PO HS, TAB 09/10/15 Sitagliptin* (Januvia*) 100 Mg Tablet, 100 MG PO DAILY, #30 TAB 09/10/15 Metformin* (Glucophage*) 1,000 Mg Tablet, 1000 MG PO BID, #60 TAB 09/10/15 Atorvastatin* (Atorvastatin*) 40 Mg Tablet, 40 MG PO QHS, #30 TAB 09/10/15 Benazepril Hcl* (Benazepril Hcl*) 40 Mg Tablet, 40 MG PO DAILY, TAB 06/20/14 Discontinued Scripts Acetaminophen (TYLENOL 325 MG TAB) 325 Mg Tab, 650 MG PO Q6H PRN for PAIN LEVEL 1-3 OR FEVER, #1 TAB Prov:ANGEL DEUTSCH MD 06/24/14 Primary Care Provider Not On Staff Doctor Pending Labs Laboratory Tests Test 07/05/18 12:03 07/05/18 17:17 07/05/18 20:25 07/06/18 01:10 Bedside 117 189 297 240 Glucose mg/dL (70-220) mg/dL (70-220) mg/dL (70-220) mg/dL (70-220) Test 07/06/18 07:39 Bedside 195 Glucose mg/dL (70-220) AYO DICKSON Jul 06, 2018 11:03
== END 2018-07-06 12:50 | disposition home or self-care (01) | DRG 246 ==
LOC: E/R 13:15 → 6WM 19:13 → ICU 07-01 17:45 → 5EC 07-01 19:21 → ICU 07-01 19:33 → 6WM 07-02 14:36
PROVIDERS: ADMIT Internal Medicine; ATTEND Internal Medicine
PROC: B211YZZ Fluoroscopy of Multiple Coronary Arteries using Other Contrast (ICD-10-PCS; 2018-07-01)
PROC: 027034Z Dilation of Coronary Artery, One Artery with Drug-eluting Intraluminal Device, Percutaneous Approach (ICD-10-PCS; principal; 2018-07-01 17:00)
PROC: 4A023N7 Measurement of Cardiac Sampling and Pressure, Left Heart, Percutaneous Approach (ICD-10-PCS; 2018-07-01 17:00)
DX: I21.4 Non-ST elevation (NSTEMI) myocardial infarction (principal); I50.21 Acute systolic (congestive) heart failure; I11.0 Hypertensive heart disease with heart failure; I25.5 Ischemic cardiomyopathy; E78.5 Hyperlipidemia, unspecified; E11.65 Type 2 diabetes mellitus with hyperglycemia; I25.10 Atherosclerotic heart disease of native coronary artery without angina pectoris; D64.9 Anemia, unspecified; I25.82 Chronic total occlusion of coronary artery; J20.9 Acute bronchitis, unspecified; N40.1 Benign prostatic hyperplasia with lower urinary tract symptoms
CPT/HCPCS: 71045; 80053; 80061; 82550; 82553; 82962; 83036; 83735; 83880; 84145; 84439; 84443; 84484; 85025; 85610; 85730; 93005; 93306; 93458; 94640; 94664; 96374; C1725; C1874; C1887; C1894; C9600; J0583; J0696; J1644; J1815; J1940; J2250; J2920; J3010; J3475; J7030; J7040; Q9967